=== PATIENT | female | born 1955 | race American Indian/Alaskan Native ===

== ENCOUNTER → 2016-07-21 | Outpatient (CLI) | payer MEDICARE, MEDICAID ==
[~2016-07-21] VITALS: Ht 154.9 cm; Wt 59.0 kg
[~2016-07-21] MED LIST: ALDACTONE 25MG25 M1 PO; ALDACTONE50 MG PO; ASPIRIN 32325 MG/TAB PO; ASPIRIN E.C. 8181 MG PO; ATENOLOL100 MG PO; CARDIZEM 30MG T30 MG PO; CEFTIN500 MG PO; CEPHALEXIN500 M1 PO; CLARITIN10 MG PO; FLEXERIL 1010 MG/TAB PO; FLONASEALLERGY NS; FORADIL AERO0.012 MG IH; GAS-X EXTRA ST125 MG PO; LIPITOR 40MG TA40 MG PO; LOPRESSOR 225 MG/TAB PO; LORTAB 5/500 501 TAB PO; LOTRISONE CREAM15 GM TP; LYRICA 25MG CAP25 MG PO; MULTIPLE VITAMI1 CAP PO; NAPROSYN500 MG PO; NATURAL POTASS595 MG PO; NITROSTAT0.4 MG/TAB SL; NORCO 325 MG-51 TAB PO; OXYGEN; PERCOCET 325 MG1 TA2 PO; PLAVIX 75MG TAB75 MG PO; PROAIR HFA0.09 MG/AC IH; RT SPIRIVA18 MCG IH; STOOL SOFTENER100 M2 PO; TESSALON PERLE200 MG PO; VALIUM5 MG PO; ZANTAC 150MG T150 MG PO; ZITHROMAX Z PA250 MG PO; macrobid PO
[2016-07-21 11:42] VITALS: BP 129/81; PULSE 82; TEMP 97
[2016-07-21 12:01] LABS: HEMATOCRIT 41.5 % (37.0-47.0); HEMOGLOBIN 13.5 g/dl (12.5-16.0); MEAN CELL VOLUME 92 fl (80.0-100.0); MEAN CORPUSCULAR HEMOGLOBIN 30 pg (27.0-31.0); MEAN CORPUSCULAR HGB CONC 33 g/dl (33.0-37.0); MEAN PLATELET VOLUME 10.8 fl (7.4-10.4); PLATELET COUNT 203 K/mm3 (130-400); WHITE BLOOD COUNT 7.9 K/mm3 (4.8-10.8)
[2016-07-21 12:05] LABS: INR 1.2 (0.8-3.0); PROTHROMBIN TIME 12.8 SECONDS (9.7-12.8)
[2016-07-21 12:24] LABS: CALCIUM 9.6 mg/dL (8.4-10.2); CREATININE, serum 1.17 mg/dL (0.52-1.25); POTASSIUM 4.5 mmol/L (3.4-5.0)
[2016-07-21 13:10] VITALS: BP 132/83; PULSE 90
[2016-07-21 14:00] VITALS: BP 127/83; PULSE 92
[2016-07-21 14:15] VITALS: BP 117/68; PULSE 86
[2016-07-21 15:00] VITALS: BP 117/81; PULSE 84; TEMP 97
== END ==
LOC: COL.RAD 10:44
PROVIDERS: Internal Medicine Interventional Cardiology
DX: R42 Dizziness and giddiness (principal); Z95.818 Presence of other cardiac implants and grafts; I47.2 Ventricular tachycardia; I25.10 Atherosclerotic heart disease of native coronary artery without angina pectoris; I25.2 Old myocardial infarction; Z79.899 Other long term (current) drug therapy; Z79.82 Long term (current) use of aspirin; E78.5 Hyperlipidemia, unspecified; I10 Essential (primary) hypertension; K21.9 Gastro-esophageal reflux disease without esophagitis; Z87.891 Personal history of nicotine dependence
CPT/HCPCS: C1764; J2250; J3010

== ENCOUNTER → 2016-08-16 | Outpatient (CLI) | payer MEDICARE, MEDICAID ==
[2016-08-16 11:20] LABS: HEMATOCRIT 43.8 % (37.0-47.0); HEMOGLOBIN 14.5 g/dl (12.5-16.0); MEAN CELL VOLUME 90 fl (80.0-100.0); MEAN CORPUSCULAR HEMOGLOBIN 30 pg (27.0-31.0); MEAN CORPUSCULAR HGB CONC 33 g/dl (33.0-37.0); MEAN PLATELET VOLUME 10.5 fl (7.4-10.4); PLATELET COUNT 212 K/mm3 (130-400); RED BLOOD COUNT 4.88 M/mm3 (4.10-5.30); REDCELL DISTRIBUTION WIDTH-CV 12.8 % (11.5-14.5); WHITE BLOOD COUNT 7.7 K/mm3 (4.8-10.8)
[2016-08-16 11:30] LABS: ANION GAP 13 mmol/L (7-16); BLOOD UREA NITROGEN 15 mg/dL (7-17); CARBON DIOXIDE 26 mmol/L (22-30); CHLORIDE 102 mmol/L (98-107); CREATININE, serum 0.96 mg/dL (0.52-1.25); GLUCOSE 107 mg/dL (74-106); POTASSIUM 3.7 mmol/L (3.4-5.0); SODIUM 141 mmol/L (137-145)
[2016-08-16 11:41] LABS: ALLEN TEST YES; ALLENS TEST RESULT PASS; ARTERIAL BLD GAS O2 SATURATION 95.2 % (92-100); ARTERIAL BLD GAS TCO2 CT 23.1; ARTERIAL BLOOD GAS BASE EXCESS -1.1 (-2-2); ARTERIAL BLOOD GAS HCO3 22.1 meq/L (22-26); ARTERIAL BLOOD GAS PO2 75.2 mmHg (80-100); ARTERIAL BLOOD GAS pH 7.45 (7.35-7.45); ATS? NO
[2016-08-16 11:43] LABS: B-TYPE NATRIURETIC PEPTIDE 38 pg/mL (0-125)
[2016-08-16 11:44] LABS: TROPONIN-I < 0.012 ng/mL (0.000-0.034)
== END ==
LOC: COL.RAD 10:34
PROVIDERS: Internal Medicine Interventional Cardiology
DX: J43.9 Emphysema, unspecified (principal)

== ENCOUNTER 2017-05-18 09:04 | Day surgery (SDC) | payer MEDICARE, MEDICAID ==
[~2017-05-18] VITALS: Ht 157.5 cm; Wt 54.5 kg
[2017-05-18] VITALS (13 sets, daily range): BP systolic 100–125; BP diastolic 58–88; PULSE 61–90; TEMP 97.4
[2017-05-18 09:43] LABS: HEMATOCRIT 45.5 % (37.0-47.0); HEMOGLOBIN 15.1 g/dl (12.5-16.0); MEAN CELL VOLUME 91 fl (80.0-100.0); MEAN CORPUSCULAR HEMOGLOBIN 30 pg (27.0-31.0); MEAN CORPUSCULAR HGB CONC 33 g/dl (33.0-37.0); MEAN PLATELET VOLUME 10.5 fl (7.4-10.4); PLATELET COUNT 248 K/mm3 (130-400); REDCELL DISTRIBUTION WIDTH-CV 13.6 % (11.5-14.5)
[2017-05-18] MEDS ORDERED: LIPITOR 40MG TA40 MG PO (09:45)
[2017-05-18] MEDS ORDERED: DULERA1 AR1 IH (09:46)
[2017-05-18] MEDS ORDERED: TRIAMCINOLONE A15 GM TP (09:47)
[2017-05-18 09:48] LABS: INR 1.1 (0.8-3.0); PROTHROMBIN TIME 13.1 SECONDS (9.7-12.8)
[2017-05-18] MEDS ORDERED: PROAIR HFA0.09 MG/AC IH (09:52)
[2017-05-18] MEDS ORDERED: NITROSTAT0.4 MG/TAB SL (09:53)
[2017-05-18] MEDS ORDERED: MULTI VITAMINS1 TAB PO (09:54)
[2017-05-18 09:56] LABS: CALCIUM 9.8 mg/dL (8.4-10.2); CREATININE, serum 1.27 mg/dL (0.52-1.25); MAGNESIUM 1.8 mg/dL (1.6-2.3); PHOSPHOROUS 4.1 mg/dL (2.5-4.5); POTASSIUM 4.4 mmol/L (3.4-5.0)
[2017-05-18 10:27] LABS: THYROID STIMULATING HORMONE 3.43 uIU/mL (0.465-4.680)
[2017-05-18] MEDS ORDERED: TYLENOL 325MG325 MG PO (14:28)
== END 2017-05-18 16:38 | disposition home or self-care (01) ==
LOC: COL.CAR 09:04
PROVIDERS: Internal Medicine Interventional Cardiology
DX: I25.119 Atherosclerotic heart disease of native coronary artery with unspecified angina pectoris (principal); R94.39 Abnormal result of other cardiovascular function study; I47.2 Ventricular tachycardia; K21.9 Gastro-esophageal reflux disease without esophagitis; I25.2 Old myocardial infarction; E78.5 Hyperlipidemia, unspecified; I73.9 Peripheral vascular disease, unspecified; Z79.01 Long term (current) use of anticoagulants
CPT/HCPCS: J2250; J3010; Q9967

== ENCOUNTER → 2017-08-03 | Outpatient (CLI) | payer MEDICARE, MEDICAID ==
[~2017-08-03] MED LIST changes: +DULERA1 AR1 IH; +MULTI VITAMINS1 TAB PO; +TRIAMCINOLONE A15 GM TP; +TYLENOL 325MG325 MG PO
== END ==
LOC: COL.CARD 09:51
DX: R55 Syncope and collapse (principal)

== ENCOUNTER → 2017-08-06 | Outpatient (CLI) | payer MEDICARE, MEDICAID | LOC: COL.RAD 10:09 | DX: I65.23 Occlusion and stenosis of bilateral carotid arteries (principal); I99.8 Other disorder of circulatory system; I77.1 Stricture of artery; J43.2 Centrilobular emphysema; M48.02 Spinal stenosis, cervical region; M50.31 Other cervical disc degeneration, high cervical region; M25.78 Osteophyte, vertebrae | CPT/HCPCS: Q9967 ==

== ENCOUNTER 2018-02-26 13:30 | Outpatient (RCR) | payer MEDICARE, MEDICAID | END 2018-02-28 15:13 | disposition home or self-care (01) | LOC: WSPT 13:30 | DX: M47.12 Other spondylosis with myelopathy, cervical region (principal); G95.89 Other specified diseases of spinal cord; M53.2X2 Spinal instabilities, cervical region; Z79.82 Long term (current) use of aspirin; Z79.899 Other long term (current) drug therapy; Z99.81 Dependence on supplemental oxygen | CPT/HCPCS: G8984-GP; G8985-GP ==

== ENCOUNTER 2018-07-04 15:45 | Outpatient (RCR) | payer MEDICARE, MEDICAID | END 2018-07-05 09:39 | disposition home or self-care (01) | LOC: WSC 15:45 | DX: Z47.89 Encounter for other orthopedic aftercare (principal); R53.1 Weakness; R26.89 Other abnormalities of gait and mobility; Z98.1 Arthrodesis status; Z79.82 Long term (current) use of aspirin; Z79.899 Other long term (current) drug therapy; Z79.891 Long term (current) use of opiate analgesic; Z99.81 Dependence on supplemental oxygen | CPT/HCPCS: G8978-GP; G8979-GP ==

== ENCOUNTER 2019-02-22 18:37 | Emergency (ER) | payer MEDICARE, MEDICAID ==
[~2019-02-22] VITALS: Ht 157.5 cm; Wt 65.9 kg
[2019-02-22 18:38] VITALS: TEMP 98.7
[2019-02-22 20:22] VITALS: BP 119/71; PULSE 100
== END 2019-02-22 20:22 | disposition home or self-care (01) ==
LOC: COL.ER 18:37
DX: S09.90XA Unspecified injury of head, initial encounter (principal); S16.1XXA Strain of muscle, fascia and tendon at neck level, initial encounter; I48.91 Unspecified atrial fibrillation; I25.10 Atherosclerotic heart disease of native coronary artery without angina pectoris; J44.9 Chronic obstructive pulmonary disease, unspecified; R40.2412 Glasgow coma scale score 13-15, at arrival to emergency department; Z88.6 Allergy status to analgesic agent; Z87.891 Personal history of nicotine dependence; Z79.51 Long term (current) use of inhaled steroids; Z79.82 Long term (current) use of aspirin; W01.0XXA Fall on same level from slipping, tripping and stumbling without subsequent striking against object, initial encounter; Y92.009 Unspecified place in unspecified non-institutional (private) residence as the place of occurrence of the external cause; Y93.E1 Activity, personal bathing and showering

== ENCOUNTER → 2019-02-26 | Outpatient (CLI) | payer MEDICARE, MEDICAID ==
[2019-02-26 17:21] LABS: BASO % 0.3 % (0.0-2.0); EOS # 0.3 (0.0-0.7); EOS % 3.3 % (0-4.0); GRAN # 6.1 (1.4-6.5); GRAN % 67.8 % (42.2-75.2); HEMATOCRIT 38.4 % (37.0-47.0); HEMOGLOBIN 11.6 g/dl (12.5-16.0); LYMPH # 1.9 (1.2-3.4); LYMPH % 20.6 % (20.0-51.0); MEAN CELL VOLUME 87 fl (80.0-100.0); MEAN CORPUSCULAR HEMOGLOBIN 26 pg (27.0-31.0); MEAN CORPUSCULAR HGB CONC 30 g/dl (33.0-37.0); MEAN PLATELET VOLUME 10.1 fl (7.4-10.4); MONO # 0.6 (0.1-0.6); MONO % 6.9 % (1.7-9.3); PLATELET COUNT 205 K/mm3 (130-400); RED BLOOD COUNT 4.42 M/mm3 (4.10-5.30); REDCELL DISTRIBUTION WIDTH-CV 22.2 % (11.5-14.5)
[2019-02-26 17:30] LABS: ANION GAP 10 mmol/L (7-16); BLOOD UREA NITROGEN 22 mg/dL (7-17); CALCIUM 9.2 mg/dL (8.4-10.2); CARBON DIOXIDE 23 mmol/L (22-30); CHLORIDE 112 mmol/L (98-107); GLUCOSE 124 mg/dL (74-106); POTASSIUM 4.4 mmol/L (3.4-5.0); SODIUM 145 mmol/L (137-145)
[2019-02-26 17:50] LABS: TROPONIN-I < 0.012 ng/mL (0.000-0.035)
== END ==
LOC: ZCOL.LAB 16:58
PROVIDERS: Internal Medicine Interventional Cardiology
DX: I50.21 Acute systolic (congestive) heart failure (principal); I25.10 Atherosclerotic heart disease of native coronary artery without angina pectoris; R06.02 Shortness of breath

== ENCOUNTER → 2019-02-28 | Outpatient (CLI) | payer MEDICARE, MEDICAID ==
[~2019-02-28] MED LIST changes: +CALCIUM CARBON650 M2 PO; +GAS AID MAXIMU125 MG PO; +VITAMIN D31000 I1 PO
== END ==
LOC: COL.RAD 13:50
DX: J43.9 Emphysema, unspecified (principal); I70.8 Atherosclerosis of other arteries
CPT/HCPCS: Q9967

== ENCOUNTER 2019-03-18 13:22 | Observation (INO) | payer MEDICARE, MEDICAID ==
[~2019-03-18] VITALS: Ht 157.5 cm; Wt 62.2 kg
[~2019-03-18 13:22] MED LIST changes: -CALCIUM CARBON650 M2 PO; -GAS AID MAXIMU125 MG PO; -VITAMIN D31000 I1 PO
[2019-03-18 14:40] LABS: INR 1.1 (0.8-3.0)
[2019-03-18 14:44] LABS: ALANINE AMINOTRANSFERASE 29 U/L (9-52); ALBUMIN 4.4 gm/dL (3.5-5.0); ALKALINE PHOSPHATASE 189 U/L (50-136); ANION GAP 15 mmol/L (7-16); AST,SGOT 31 U/L (15-37); BASO # 0.1 (0.0-0.2); BASO % 0.4 % (0.0-2.0); BILIRUBIN,TOTAL 1.4 mg/dL (0.0-1.0); BLOOD UREA NITROGEN 21 mg/dL (7-17); CALCIUM 9.4 mg/dL (8.4-10.2); CARBON DIOXIDE 22 mmol/L (22-30); CHLORIDE 100 mmol/L (98-107); CREATININE, serum 0.98 (0.52-1.25); EOS # 0.1 (0.0-0.7); EOS % 0.6 % (0-4.0); GLUCOSE 138 mg/dL (74-106); GRAN # 9.6 (1.4-6.5); GRAN % 76.8 % (42.2-75.2); HEMATOCRIT 44.4 % (37.0-47.0); HEMOGLOBIN 14.6 g/dl (12.5-16.0); LYMPH # 1.7 (1.2-3.4); LYMPH % 13.8 % (20.0-51.0); MEAN CELL VOLUME 82 fl (80.0-100.0); MEAN CORPUSCULAR HEMOGLOBIN 27 pg (27.0-31.0); MEAN CORPUSCULAR HGB CONC 33 g/dl (33.0-37.0); MEAN PLATELET VOLUME 10.3 fl (7.4-10.4); MONO % 7.7 % (1.7-9.3); PLATELET COUNT 274 K/mm3 (130-400); POTASSIUM 4.2 mmol/L (3.4-5.0); RED BLOOD COUNT 5.43 M/mm3 (4.10-5.30); REDCELL DISTRIBUTION WIDTH-CV 19.1 % (11.5-14.5); SODIUM 137 mmol/L (137-145); TOTAL PROTEIN 8.3 gm/dL (6.4-8.2)
[2019-03-18] MEDS ORDERED: VITAMIN D31000 I1 PO (14:46)
[2019-03-18] MEDS ORDERED: CALCIUM CARBON650 M2 PO (14:47)
[2019-03-18] MEDS ORDERED: GAS AID MAXIMU125 MG PO (14:47)
[2019-03-18 14:56] LABS: TROPONIN-I < 0.012 ng/mL (0.000-0.035)
[2019-03-18 15:52] VITALS: BP 154/90; PULSE 112
[2019-03-18 17:16] LABS: COLLECTION METHOD CLEAN CATCH
[2019-03-18 17:38] LABS: MUCOUS Present /lpf; PH 5 (5-8); SQUAMOUS EPITHELIAL 0-2 /hpf; URINE APPEARANCE Clear; URINE BACTERIA None Seen /hpf; URINE BILIRUBIN Negative (NEGATIVE); URINE BLOOD Negative (NEGATIVE); URINE COLOR Yellow; URINE GLUCOSE Negative (NEGATIVE); URINE KETONE Negative (NEGATIVE); URINE LEUKOCYTE ESTERASE Trace (NEGATIVE); URINE NITRATE Negative (NEGATIVE); URINE PROTEIN(semi-quant) Negative (NEGATIVE); URINE UROBILINOGEN Negative (NEGATIVE)
[2019-03-18 19:30] VITALS: BP 118/86; PULSE 125; TEMP 97.4
[2019-03-19] VITALS (9 sets, daily range): BP systolic 99–133; BP diastolic 57–82; PULSE 94–130; TEMP 97.5–98.9
--- NOTE | 2019-03-19 03:16 | NUR ---
PEPCID GIVEN AT THIS TIME FOR C/O ACID REFLUX. INA WAS OK TO GIVE THIS AT THIS TIME.
--- NOTE | 2019-03-19 07:57 | NUR ---
Pt had a better night after the pepcid was given for her acid reflex. States she slept some. Granddaughter spent the night with pt. No c/o this AM. Report given to oncoming RN. Call light within reach.
--- NOTE | 2019-03-19 08:00 | NUR ---
Patient resting in bed. Granddaughter at bedside. VSS. HR tachicardic DR is aware.IV CD&I. Patient denies pain and SOB. O2 @ 2L via NC. Fall risk precautions are in place. Pt expresses no further needs. Call light is in reach.
[2019-03-19 09:21] LABS: HEMATOCRIT 39.9 % (37.0-47.0); MEAN CELL VOLUME 85 fl (80.0-100.0); MEAN CORPUSCULAR HEMOGLOBIN 27 pg (27.0-31.0); MEAN CORPUSCULAR HGB CONC 31 g/dl (33.0-37.0); MEAN PLATELET VOLUME 10.1 fl (7.4-10.4); PLATELET COUNT 210 K/mm3 (130-400); REDCELL DISTRIBUTION WIDTH-CV 19.3 % (11.5-14.5)
[2019-03-19 09:25] LABS: HEMOGLOBIN 12.5 g/dl (12.5-16.0)
[2019-03-19 09:32] LABS: CALCIUM 8.4 mg/dL (8.4-10.2); CREATININE, serum 0.85 (0.52-1.25); POTASSIUM 4.2 mmol/L (3.4-5.0)
[2019-03-19 10:31] LABS: BAND 11 % (0-10); LYMPHOCYTE 3 % (20.0-51.0); NEUTROPHILS 86 % (42.0-75.2)
[2019-03-19 10:32] LABS: PLATELET ESTIMATE NORMAL (NORMAL)
--- NOTE | 2019-03-19 11:17 | NUR ---
First visit from the sand technician. No needs right now.
--- NOTE | 2019-03-19 13:27 | NUR ---
ARASH met with the patient to discuss discharge plan. The patient lives in [place] with her granddaughter (Lisbet Malave) and her granddaughter's . She reports independence with ADLs and has a walker, three canes, and nocturnal oxygen from [employer]. The patient's PCP is Dr. Rui He at the [facility] and she also receives her medications from there or will utilize the [facility]. She reports no difficulties obtaining her meds. The patient's advanced directives are in EMR. Her DPOA-HC is her daughter, Kristy Reddy (ph#[phone]). ARASH then addressed PT/OT's recommendation of home health vs outpatient therapy. The patient reports that she would be interested in home health. ARASH presented the patient with Medicare.gov's list of home health agencies that serve [place]. The patient chose [facility]. ARASH contacted and faxed a referral to Anirudh at [facility]. Anirudh reports that they are able to accept the patient for services. ARASH to inform the patient and will continue to follow.
--- NOTE | 2019-03-19 18:23 | NUR ---
Patient sitting up in bed eating dinner with daughter at the bedside. A&O, VSS. HR tachycardic throughout the shift. IV CDI, fluids infusing. Denies pain and discomfort. HR has decreased with new medication administration. Patient tolerated PT without difficulty. No further needs expressed from patient. Call light within reach
--- NOTE | 2019-03-19 21:30 | NUR ---
Patient assessed at this time. Alert and oriented x 4, and able to make needs known. Denies having pain and discomfort at this time. Peripheral IV to right forearm. Denies SOB and dyspnea. LS CTA. Respirations even and unlabored. HR-tachycardia. Denies chest pain and discomfort. BSAx4. No edema. Voices no questions, needs, or concerns at this time. Resting in bed with call light within reach. Granddaughter at bedside.
[2019-03-20 00:32] VITALS: BP 117/67; PULSE 86; TEMP 97.6
[2019-03-20 04:03] VITALS: BP 134/70; PULSE 82; TEMP 98.2
--- NOTE | 2019-03-20 06:04 | NUR ---
Patient has denied having pain and discomfort this shift. Has been resting in bed. IV fluids continue per orders. Granddaughter remains at bedside. Call light is within reach.
[2019-03-20 07:22] VITALS: BP 115/72; PULSE 77; TEMP 98
--- NOTE | 2019-03-20 09:10 | NUR ---
Patient is awake in bed watching TV, granddaughter is at bedside. Patient is alert and oriented. Respirations are even and nonlabored. States she has slight generalized pain which is normal for her. Does not wish for any intervention. Fresh water provided and patient took medications without issue. Call light and personal items are within reach.
[2019-03-20 12:06] VITALS: BP 114/75; PULSE 82; TEMP 97.9
[2019-03-20 17:14] VITALS: BP 143/69; PULSE 109; TEMP 98
--- NOTE | 2019-03-20 19:04 | NUR ---
Patient discharge instructions reviewed with patient and she verbalized understanding. Granddaughter will be making follow up appointments for her. She was accompained to private vehicle with Daughter and granddaughter. Personal belongings taken with patient.
== END 2019-03-20 18:05 | disposition home or self-care (01) ==
LOC: COL.ER 13:22 → MEDICAL 17:13
PROVIDERS: Emergency Medicine; ADMIT Student in an Organized Health Care Education/Training Program
DX: R55 Syncope and collapse (principal); I10 Essential (primary) hypertension; I73.9 Peripheral vascular disease, unspecified; J44.9 Chronic obstructive pulmonary disease, unspecified; E86.0 Dehydration; G89.29 Other chronic pain; M54.5 Low back pain; I25.10 Atherosclerotic heart disease of native coronary artery without angina pectoris; Z90.49 Acquired absence of other specified parts of digestive tract; Z79.02 Long term (current) use of antithrombotics/antiplatelets; Z79.82 Long term (current) use of aspirin; Z79.51 Long term (current) use of inhaled steroids; Z87.891 Personal history of nicotine dependence; Z99.81 Dependence on supplemental oxygen; Z91.048 Other nonmedicinal substance allergy status; Z91.018 Allergy to other foods; Z88.6 Allergy status to analgesic agent
CPT/HCPCS: 99232-AI; G0378; J0696; J1650; J1815; J7030; J7512; Q9967

== ENCOUNTER → 2019-03-24 | Outpatient (CLI) | payer MEDICARE, MEDICAID ==
[~2019-03-24] MED LIST changes: +CALCIUM CARBON650 M2 PO; +GAS AID MAXIMU125 MG PO; +VITAMIN D31000 I1 PO
[2019-03-24 16:08] LABS: HEMATOCRIT 42.2 % (37.0-47.0); HEMOGLOBIN 13.2 g/dl (12.5-16.0); MEAN CELL VOLUME 87 fl (80.0-100.0); MEAN CORPUSCULAR HEMOGLOBIN 27 pg (27.0-31.0); MEAN CORPUSCULAR HGB CONC 31 g/dl (33.0-37.0); MEAN PLATELET VOLUME 9.8 fl (7.4-10.4); PLATELET COUNT 195 K/mm3 (130-400); RED BLOOD COUNT 4.87 M/mm3 (4.10-5.30)
[2019-03-24 16:16] LABS: CALCIUM 8.8 mg/dL (8.4-10.2); CREATININE, serum 1.09 (0.52-1.25); POTASSIUM 4.3 mmol/L (3.4-5.0)
== END ==
LOC: COL.LAB 15:09
PROVIDERS: Internal Medicine Interventional Cardiology
DX: I73.9 Peripheral vascular disease, unspecified (principal)

== ENCOUNTER → 2019-05-02 | Outpatient (CLI) | payer MEDICARE, MEDICAID ==
[2019-05-03 01:11] LABS: HEPATITIS C VIRUS ANTIBODY Reactive (Negative)
== END ==
LOC: COL.LAB 09:07
PROVIDERS: Internal Medicine Interventional Cardiology
DX: Z11.59 Encounter for screening for other viral diseases (principal)

== ENCOUNTER → 2019-05-15 | Outpatient (CLI) | payer MEDICARE, MEDICAID | LOC: COL.RAD 10:55 | DX: J43.9 Emphysema, unspecified (principal); K74.0 Hepatic fibrosis ==

== ENCOUNTER 2019-09-17 12:49 | Emergency (ER) | payer MEDICARE, MEDICAID ==
[~2019-09-17] VITALS: Ht 157.5 cm; Wt 61.4 kg
[2019-09-17 13:22] LABS: BASO # 0.1 (0.0-0.2); BASO % 0.3 % (0.0-2.0); EOS % 0.1 % (0-4.0); GRAN # 16.8 (1.4-6.5); GRAN % 88.6 % (42.2-75.2); HEMATOCRIT 44.6 % (37.0-47.0); HEMOGLOBIN 14.8 g/dl (12.5-16.0); LYMPH # 0.9 (1.2-3.4); LYMPH % 4.9 % (20.0-51.0); MEAN CELL VOLUME 86 fl (80.0-100.0); MEAN CORPUSCULAR HEMOGLOBIN 29 pg (27.0-31.0); MEAN CORPUSCULAR HGB CONC 33 g/dl (33.0-37.0); MEAN PLATELET VOLUME 10.6 fl (7.4-10.4); MONO % 5.1 % (1.7-9.3); PLATELET COUNT 188 K/mm3 (130-400); RED BLOOD COUNT 5.19 M/mm3 (4.10-5.30); REDCELL DISTRIBUTION WIDTH-CV 14.4 % (11.5-14.5)
[2019-09-17 13:30] LABS: INR 1.1 (0.8-3.0); PROTHROMBIN TIME 12.6 SECONDS (9.7-12.8)
[2019-09-17 13:36] LABS: ALBUMIN 4.4 gm/dL (3.5-5.0); C-REACTIVE PROTEIN 0.6 mg/dL (0.0-0.9); CALCIUM 10.6 mg/dL (8.4-10.2); CREATININE, serum 1.17 (0.52-1.25); POTASSIUM 3.7 mmol/L (3.4-5.0); TOTAL PROTEIN 8.5 gm/dL (6.4-8.2)
[2019-09-17 13:50] LABS: PROLACTIN 12.9 ng/mL (3.0-18.6); TROPONIN-I 0.373 ng/mL (0.000-0.035)
[2019-09-17 15:41] VITALS: BP 156/98; PULSE 122; TEMP 98.3
== END 2019-09-17 15:45 | disposition short-term general hospital (02) ==
LOC: COL.ER 12:49
PROVIDERS: Emergency Medicine
DX: S06.6X9A Traumatic subarachnoid hemorrhage with loss of consciousness of unspecified duration, initial encounter (principal); S32.010A Wedge compression fracture of first lumbar vertebra, initial encounter for closed fracture; M62.82 Rhabdomyolysis; N28.0 Ischemia and infarction of kidney; R79.89 Other specified abnormal findings of blood chemistry; J44.9 Chronic obstructive pulmonary disease, unspecified; I48.91 Unspecified atrial fibrillation; I25.10 Atherosclerotic heart disease of native coronary artery without angina pectoris; R40.2412 Glasgow coma scale score 13-15, at arrival to emergency department; Z87.891 Personal history of nicotine dependence; Z79.82 Long term (current) use of aspirin; Z79.02 Long term (current) use of antithrombotics/antiplatelets; Z79.51 Long term (current) use of inhaled steroids; W08.XXXA Fall from other furniture, initial encounter; Y92.009 Unspecified place in unspecified non-institutional (private) residence as the place of occurrence of the external cause
CPT/HCPCS: J1170; J2405; J7030; Q9967

== ENCOUNTER → 2019-10-01 | Outpatient (CLI) | payer MEDICARE, MEDICAID ==
[2019-10-01 14:44] LABS: BASO % 0.3 % (0.0-2.0); EOS # 0.3 (0.0-0.7); GRAN # 9.4 (1.4-6.5); GRAN % 74.4 % (42.2-75.2); HEMATOCRIT 43.7 % (37.0-47.0); HEMOGLOBIN 13.9 g/dl (12.5-16.0); LYMPH # 1.8 (1.2-3.4); LYMPH % 14.2 % (20.0-51.0); MEAN CELL VOLUME 90 fl (80.0-100.0); MEAN CORPUSCULAR HEMOGLOBIN 29 pg (27.0-31.0); MEAN CORPUSCULAR HGB CONC 32 g/dl (33.0-37.0); MEAN PLATELET VOLUME 10.8 fl (7.4-10.4); MONO % 8.3 % (1.7-9.3); PLATELET COUNT 291 K/mm3 (130-400); RED BLOOD COUNT 4.86 M/mm3 (4.10-5.30); REDCELL DISTRIBUTION WIDTH-CV 16.1 % (11.5-14.5)
[2019-10-01 15:11] LABS: ALBUMIN 4.4 gm/dL (3.5-5.0); BILIRUBIN,TOTAL 1.1 mg/dL (0.0-1.0); CALCIUM 9.5 mg/dL (8.4-10.2); CREATININE, serum 1.13 (0.52-1.25); POTASSIUM 4.4 mmol/L (3.4-5.0); TOTAL PROTEIN 8.6 gm/dL (6.4-8.2)
== END ==
LOC: ZLAB.STJ 12:49
PROVIDERS: Family Medicine
DX: I10 Essential (primary) hypertension (principal); S06.0X0D Concussion without loss of consciousness, subsequent encounter

== ENCOUNTER → 2020-07-16 | Outpatient (CLI) | payer MEDICARE, MEDICAID ==
[~2020-07-16] MED LIST changes: +CLARITIN 1010 MG/TAB PO; +CLEOCIN HCL300 MG PO; +DULERA1 ARO IH; +IMITREX 25MG TA25 MG PO; +INCRUSE EL62.5 MCG/A IH; +LASIX 20MG TABL20 MG PO; +LEVAQUIN 750MG750 M1 PO; -LOPRESSOR 225 MG/TAB PO; +MACROBID 1100 MG/CAP PO; +NORVASC 5MG5 MG/TAB PO; +PREDNISONE10 MG PO; +PREDNISONE20 MG PO; +PRILOSEC 20MG20 MG PO; +PROBIOTIC BLEN1 EACH PO; +PROTONIX 40MG T40 MG PO; +TOPROL XL 25MG25 MG PO; +TOPROL XL 50MG50 MG PO; +TOPROL XL100 MG PO; +VANCOCIN H125 MG/CAP PO; +ZOLOFT 25MG25 MG PO; +ZOLOFT 50MG50 MG PO
[2020-07-16 08:00] LABS: ARTERIAL BLD GAS O2 SATURATION 89.5 % (92-100); ARTERIAL BLD GAS TCO2 CT 23.1; ARTERIAL BLOOD GAS BASE EXCESS -1.5 (-2-2); ARTERIAL BLOOD GAS PCO2 33.2 mmHg (35-45); ARTERIAL BLOOD GAS PO2 55.1 mmHg (80-100); ARTERIAL BLOOD GAS pH 7.44 (7.35-7.45)
--- NOTE | 2020-07-16 09:47 | NUR ---
Upon patient arriving and having been already brought up to the patient waiting room. Patient informs check in that she wears 5L oxygen at home and has not been wearing it since she left the house this morning. Patient was given oxygen and then notified that she has not being wearing 5L and if Dr. Starks would still like and ABG done. Dr. Starks wanted the patient at least on 2l for the ABG. Patient was placed on 2L for ABG, results were called back to Dr. Starks who wanted patient to wear 4L at home. Patient did not feel well enough for PFT and wanted to reschedule.
== END ==
LOC: COL.PUL 07-08 07:30
PROVIDERS: Internal Medicine Pulmonary Disease
DX: J44.9 Chronic obstructive pulmonary disease, unspecified (principal)

== ENCOUNTER 2020-08-18 17:47 | Inpatient (IN) | payer MEDICARE, MEDICAID ==
[~2020-08-18] VITALS: Ht 152.4 cm; Wt 61.2 kg
[~2020-08-18 17:47] MED LIST changes: -CLARITIN 1010 MG/TAB PO; -DULERA1 ARO IH; -INCRUSE EL62.5 MCG/A IH; -LASIX 20MG TABL20 MG PO; -LEVAQUIN 750MG750 M1 PO; -MACROBID 1100 MG/CAP PO; -PREDNISONE20 MG PO; -PRILOSEC 20MG20 MG PO; -TOPROL XL 25MG25 MG PO; -TOPROL XL100 MG PO; -VANCOCIN H125 MG/CAP PO; -ZOLOFT 25MG25 MG PO
[2020-08-18 18:40] LABS: BASO # 0.1 (0.0-0.2); BASO % 0.3 % (0.0-2.0); EOS # 0.2 (0.0-0.7); GRAN # 13.6 (1.4-6.5); GRAN % 81.7 % (42.2-75.2); HEMATOCRIT 44.2 % (37.0-47.0); HEMOGLOBIN 13.5 g/dl (12.5-16.0); LYMPH # 1.8 (1.2-3.4); LYMPH % 10.5 % (20.0-51.0); MEAN CELL VOLUME 86 fl (80.0-100.0); MEAN CORPUSCULAR HEMOGLOBIN 26 pg (27.0-31.0); MEAN CORPUSCULAR HGB CONC 31 g/dl (33.0-37.0); MEAN PLATELET VOLUME 10.9 fl (7.4-10.4); MONO # 0.9 (0.1-0.6); MONO % 5.4 % (1.7-9.3); PLATELET COUNT 211 K/mm3 (130-400); RED BLOOD COUNT 5.13 M/mm3 (4.10-5.30); REDCELL DISTRIBUTION WIDTH-CV 16.1 % (11.5-14.5)
[2020-08-18 18:44] VITALS: BP 105/693; PULSE 76
[2020-08-18 18:57] LABS: ALANINE AMINOTRANSFERASE 28 U/L (4-34); ALBUMIN 4.7 gm/dL (3.5-5.0); ALKALINE PHOSPHATASE 121 U/L (50-136); ANION GAP 13 mmol/L (7-16); AST,SGOT 62 U/L (15-37); BILIRUBIN,TOTAL 2.1 mg/dL (0.0-1.0); BLOOD UREA NITROGEN 27 mg/dL (7-17); CALCIUM 9.3 mg/dL (8.4-10.2); CARBON DIOXIDE 20 mmol/L (22-30); CHLORIDE 106 mmol/L (98-107); CREATININE, serum 1.97 (0.52-1.25); GLUCOSE 113 mg/dL (74-106); POTASSIUM 5.7 mmol/L (3.4-5.0); SODIUM 139 mmol/L (137-145); TOTAL PROTEIN 9.2 gm/dL (6.4-8.2)
[2020-08-18 18:58] LABS: C-REACTIVE PROTEIN 0.5 mg/dL (0.0-0.9)
[2020-08-18 19:08] LABS: TROPONIN-I < 0.012 ng/mL (0.000-0.035)
[2020-08-18 19:09] LABS: INR 1.1 (0.8-3.0); PROTHROMBIN TIME 12.2 SECONDS (9.7-12.8)
[2020-08-18 19:50] LABS: COLLECTION METHOD CLEAN CATCH
[2020-08-18 20:01] LABS: MUCOUS Present /lpf; PH 5 (5-8); URINE APPEARANCE Cloudy; URINE BACTERIA Rare /hpf; URINE BILIRUBIN Negative (NEGATIVE); URINE BLOOD Negative (NEGATIVE); URINE COLOR Yellow; URINE GLUCOSE Negative (NEGATIVE); URINE KETONE Negative (NEGATIVE); URINE LEUKOCYTE ESTERASE 1+ (NEGATIVE); URINE NITRATE Negative (NEGATIVE); URINE PROTEIN(semi-quant) Negative (NEGATIVE); URINE RBC 0-2 /hpf; URINE UROBILINOGEN Negative (NEGATIVE)
[2020-08-18] MEDS ORDERED: INCRUSE EL62.5 MCG/A IH (20:55)
[2020-08-18] MEDS ORDERED: PROTONIX 40MG T40 MG PO (20:55)
[2020-08-18] MEDS ORDERED: ALDACTONE50 MG PO (22:12)
[2020-08-18] MEDS ORDERED: TOPROL XL100 MG PO (22:13)
[2020-08-18] MEDS ORDERED: TOPROL XL 25MG25 MG PO (22:17)
[2020-08-18] MEDS ORDERED: ZOLOFT 25MG25 MG PO (22:17)
[2020-08-18] MEDS ORDERED: CLARITIN 1010 MG/TAB PO (22:20)
[2020-08-18 22:23] LABS: CALCIUM 8.4 mg/dL (8.4-10.2); CREATININE, serum 1.63 (0.52-1.25); POTASSIUM 3.9 mmol/L (3.4-5.0)
[2020-08-18 23:25] LABS: MAGNESIUM 1.6 mg/dL (1.6-2.3); PHOSPHOROUS 4.4 mg/dL (2.5-4.5)
[2020-08-18 23:34] LABS: CREATININE, serum 1.75 (0.52-1.25)
[2020-08-19] VITALS (225 sets, daily range): BP systolic 121–1472; BP diastolic 66–100; PULSE 72–113; TEMP 97.5–98.3; O2SAT 90–100
[2020-08-19 05:55] LABS: BASO % 0.3 % (0.0-2.0); EOS # 0.2 (0.0-0.7); GRAN # 7.6 (1.4-6.5); GRAN % 77.4 % (42.2-75.2); LYMPH # 1.3 (1.2-3.4); LYMPH % 13.6 % (20.0-51.0); MEAN CELL VOLUME 86 fl (80.0-100.0); MEAN CORPUSCULAR HGB CONC 31 g/dl (33.0-37.0); MEAN PLATELET VOLUME 11.1 fl (7.4-10.4); MONO # 0.6 (0.1-0.6); MONO % 6.4 % (1.7-9.3); PLATELET COUNT 147 K/mm3 (130-400); RED BLOOD COUNT 4.15 M/mm3 (4.10-5.30)
[2020-08-19 06:01] LABS: HEMATOCRIT 35.6 % (37.0-47.0); HEMOGLOBIN 11.1 g/dl (12.5-16.0); MEAN CORPUSCULAR HEMOGLOBIN 27 pg (27.0-31.0)
[2020-08-19 06:10] LABS: ALBUMIN 3.5 gm/dL (3.5-5.0); BILIRUBIN,TOTAL 0.6 mg/dL (0.0-1.0); CALCIUM 8.1 mg/dL (8.4-10.2); CREATININE, serum 1.26 (0.52-1.25); POTASSIUM 4.1 mmol/L (3.4-5.0); TOTAL PROTEIN 6.9 gm/dL (6.4-8.2)
[2020-08-19 08:36] LABS: CALCIUM 8.2 mg/dL (8.4-10.2); CREATININE, serum 1.25 (0.52-1.25); POTASSIUM 3.9 mmol/L (3.4-5.0)
--- NOTE | 2020-08-19 09:53 | NUR ---
SW met with the patient to discuss discharge plan. The patient lives in [place] with her granddaughter, Lisbet, and Lisbet's . She reports independence with ADLs and has a walker, cane, and continuous home oxygen from [facility]. The patient's PCP is Dr. Jelena Escalante and she receives her medications from [facility]. She reports no difficulties obtaining her meds. The patient's DPOA-HC is in EMR and it designates her daughter, Kristy (ph#[phone]). Kristy lives in [place]. The patient plans to return home with her granddaughter upon discharge. SW discussed home health and their benefits. The patient declined home health at this time. SW contacted and reviewed the above information with the patient's daughter, Kristy. Kristy reports no concerns with the patient returning home upon discharge. No additional needs at this time. *Discharge plan: home with family*
--- NOTE | 2020-08-19 13:32 | NUR ---
Initial visit; Patient thanked Personal Banking Assistant for looking in on her and offering Happy Birthday and and to keep her in Personal Banking Assistant's prayers.
--- NOTE | 2020-08-19 17:58 | NUR ---
bed bath provided to pt, arora discontinued, purewicc in place, pt actively hallucinating and talking to herself. pt does not follow directions, repositioned multiple times, legs elevated, medications given, looking for placement, no other needs.
--- NOTE | 2020-08-19 18:01 | NUR ---
pt pleasant, sob at rest, reports little rest at night, pt on 4l o2 which is baseline, pt has no other needs, med rec went over and pt assessment performed. IV fluids infusing.
[2020-08-20 03:08] VITALS: BP 149/87; PULSE 93; TEMP 97.5
[2020-08-20 03:15] VITALS: BP 116/72; BP 149/87; PULSE 35; PULSE 93; TEMP 97.5; TEMP 98.3
--- NOTE | 2020-08-20 06:08 | NUR ---
PATIENT RESTED QUIETLY IN BED THROUGHOUT THE NIGHT. PATIENT REPORTED SHE SLEPT WELL AND FEELS GOOD THIS MORNING. NO NEW ISSUES NOTED OR REPORTED BY PATIENT.
[2020-08-20 06:30] LABS: BASO % 0.3 % (0.0-2.0); EOS # 0.4 (0.0-0.7); EOS % 3.7 % (0-4.0); GRAN # 8.5 (1.4-6.5); GRAN % 77.8 % (42.2-75.2); HEMOGLOBIN 10.8 g/dl (12.5-16.0); LYMPH # 1.4 (1.2-3.4); LYMPH % 12.3 % (20.0-51.0); MEAN CELL VOLUME 85 fl (80.0-100.0); MEAN CORPUSCULAR HEMOGLOBIN 27 pg (27.0-31.0); MEAN CORPUSCULAR HGB CONC 32 g/dl (33.0-37.0); MEAN PLATELET VOLUME 11.6 fl (7.4-10.4); MONO # 0.6 (0.1-0.6); MONO % 5.4 % (1.7-9.3); PLATELET COUNT 152 K/mm3 (130-400); RED BLOOD COUNT 4.01 M/mm3 (4.10-5.30); REDCELL DISTRIBUTION WIDTH-CV 15.9 % (11.5-14.5)
[2020-08-20 06:40] LABS: HEMATOCRIT 34.1 % (37.0-47.0)
[2020-08-20 06:45] LABS: CALCIUM 8.3 mg/dL (8.4-10.2); CREATININE, serum 1.07 (0.52-1.25); MAGNESIUM 1.3 mg/dL (1.6-2.3); POTASSIUM 4.2 mmol/L (3.4-5.0)
[2020-08-20 07:30] VITALS: BP 170/86; PULSE 94; TEMP 97.9
--- NOTE | 2020-08-20 08:45 | NUR ---
Pt doing well. She has had breakfast, no pain complaints or any other needs. Call light within reach, will continue to monitor
[2020-08-20] MEDS ORDERED: MACROBID 1100 MG/CAP PO (10:34)
--- NOTE | 2020-08-20 10:59 | NUR ---
Director Community Health Nursing attended clinical rounds with the team and patient to discharge home today. SW followed up with patient to again offer Home Health services. Patient declines at this time and feels she does not need it. Patient states she has had [facility] in the past. Discharge Plan: Home today.
[2020-08-20 11:37] VITALS: BP 178/83; PULSE 105; TEMP 97.9
--- NOTE | 2020-08-20 12:00 | NUR ---
Pt sitting up eating lunch. She is aware that she is discharged. Informed her that she does have magnesium infusing and that it will be done by 3pm. No needs verbalized, will continue to monitor
--- NOTE | 2020-08-20 15:25 | NUR ---
Reviewed discharge instruction with patient. She is waiting on her ride at this time. INT removed from right wrist.
--- NOTE | 2020-08-20 15:48 | NUR ---
Pt escorted out at this time
== END 2020-08-20 15:48 | disposition home or self-care (01) | DRG 872 ==
LOC: COL.ER 17:47 → ICU 22:35 → MEDICAL 08-19 14:47
PROVIDERS: Emergency Medicine; Nurse Practitioner Family; ADMIT Internal Medicine
DX: A41.9 Sepsis, unspecified organism (principal); N17.9 Acute kidney failure, unspecified; J96.11 Chronic respiratory failure with hypoxia; N39.0 Urinary tract infection, site not specified; R65.20 Severe sepsis without septic shock; E87.5 Hyperkalemia; E83.42 Hypomagnesemia; F32.9 Major depressive disorder, single episode, unspecified; G89.29 Other chronic pain; I48.91 Unspecified atrial fibrillation; E78.5 Hyperlipidemia, unspecified; J44.9 Chronic obstructive pulmonary disease, unspecified; F17.210 Nicotine dependence, cigarettes, uncomplicated; I65.21 Occlusion and stenosis of right carotid artery; R19.7 Diarrhea, unspecified; I73.9 Peripheral vascular disease, unspecified; M54.9 Dorsalgia, unspecified; Z79.82 Long term (current) use of aspirin
CPT/HCPCS: 99223-AI; 99232-AI; 99239; J0696; J3475; J7030; J7040

== ENCOUNTER 2020-12-07 16:52 | Emergency (ER) | payer MEDICARE, MEDICAID ==
[~2020-12-07] VITALS: Ht 154.9 cm; Wt 54.5 kg
[~2020-12-07 16:52] MED LIST changes: +CLARITIN 1010 MG/TAB PO; +INCRUSE EL62.5 MCG/A IH; +MACROBID 1100 MG/CAP PO; +TOPROL XL 25MG25 MG PO; +TOPROL XL100 MG PO; +ZOLOFT 25MG25 MG PO
[2020-12-07 16:54] VITALS: TEMP 98
[2020-12-07 17:11] LABS: BASO % 0.4 % (0.0-2.0); EOS # 0.2 (0.0-0.7); EOS % 2.1 % (0-4.0); GRAN # 8.2 (1.4-6.5); GRAN % 76.9 % (42.2-75.2); HEMATOCRIT 44.2 % (37.0-47.0); HEMOGLOBIN 13.7 g/dl (12.5-16.0); LYMPH # 1.4 (1.2-3.4); LYMPH % 13.3 % (20.0-51.0); MEAN CELL VOLUME 85 fl (80.0-100.0); MEAN CORPUSCULAR HEMOGLOBIN 26 pg (27.0-31.0); MEAN CORPUSCULAR HGB CONC 31 g/dl (33.0-37.0); MEAN PLATELET VOLUME 10.8 fl (7.4-10.4); MONO # 0.7 (0.1-0.6); MONO % 6.9 % (1.7-9.3); PLATELET COUNT 194 K/mm3 (130-400); RED BLOOD COUNT 5.19 M/mm3 (4.10-5.30); REDCELL DISTRIBUTION WIDTH-CV 18.3 % (11.5-14.5)
[2020-12-07 17:26] LABS: ALANINE AMINOTRANSFERASE 27 U/L (4-34); ALBUMIN 4.2 gm/dL (3.5-5.0); ALKALINE PHOSPHATASE 158 U/L (50-136); ANION GAP 10 mmol/L (7-16); AST,SGOT 36 U/L (15-37); BILIRUBIN,TOTAL 1.5 mg/dL (0.0-1.0); BLOOD UREA NITROGEN 18 mg/dL (7-17); CALCIUM 9.1 mg/dL (8.4-10.2); CARBON DIOXIDE 24 mmol/L (22-30); CHLORIDE 106 mmol/L (98-107); CREATININE, serum 1.19 (0.52-1.25); GLUCOSE 117 mg/dL (74-106); POTASSIUM 3.6 mmol/L (3.4-5.0); SODIUM 140 mmol/L (137-145); TOTAL PROTEIN 8.3 gm/dL (6.4-8.2)
[2020-12-07 17:47] LABS: TROPONIN-I < 0.012 ng/mL (0.000-0.035)
[2020-12-07] MEDS ORDERED: ALDACTONE 25MG25 M1 PO (17:58)
[2020-12-07] MEDS ORDERED: LEVAQUIN 750MG750 M1 PO (18:37)
[2020-12-07] MEDS ORDERED: PREDNISONE20 MG PO (18:37)
[2020-12-07 19:19] VITALS: BP 142/78; PULSE 97
== END 2020-12-07 19:23 | disposition home or self-care (01) ==
LOC: COL.ER 16:52
PROVIDERS: Student in an Organized Health Care Education/Training Program
DX: J44.1 Chronic obstructive pulmonary disease with (acute) exacerbation (principal); I10 Essential (primary) hypertension; E78.5 Hyperlipidemia, unspecified; I48.91 Unspecified atrial fibrillation; Z87.891 Personal history of nicotine dependence; Z79.02 Long term (current) use of antithrombotics/antiplatelets; Z20.822 Contact with and (suspected) exposure to COVID-19
CPT/HCPCS: J1956; J2930

== ENCOUNTER 2021-01-28 08:13 | Inpatient (IN) | payer MEDICARE, MEDICAID ==
[~2021-01-28] VITALS: Ht 154.9 cm; Wt 59.1 kg
[~2021-01-28 08:13] MED LIST changes: +LEVAQUIN 750MG750 M1 PO; +PREDNISONE20 MG PO
[2021-01-28 08:41] LABS: BASO # 0.1 K/mm3 (0.0-0.2); BASO % 0.4 % (0.0-2.0); EOS # 0.1 K/mm3 (0.0-0.7); EOS % 0.3 % (0-4.0); GRAN # 16.2 K/mm3 (1.4-6.5); GRAN % 85.8 % (42.2-75.2); HEMATOCRIT 50.7 % (37.0-47.0); HEMOGLOBIN 16.4 g/dl (12.5-16.0); LYMPH # 1.5 K/mm3 (1.2-3.4); LYMPH % 7.9 % (20.0-51.0); MEAN CELL VOLUME 84 fl (80.0-100.0); MEAN CORPUSCULAR HEMOGLOBIN 27 pg (27.0-31.0); MEAN CORPUSCULAR HGB CONC 32 g/dl (33.0-37.0); MEAN PLATELET VOLUME 11.5 fl (7.4-10.4); PLATELET COUNT 213 K/mm3 (130-400); RED BLOOD COUNT 6.03 M/mm3 (4.10-5.30); REDCELL DISTRIBUTION WIDTH-CV 18.6 % (11.5-14.5)
[2021-01-28 08:46] LABS: COLLECTION METHOD CLEAN CATCH
[2021-01-28 08:49] LABS: INR 1.1 (0.8-3.0); PROTHROMBIN TIME 12.7 SECONDS (9.7-12.8)
[2021-01-28 08:56] LABS: MUCOUS Present /lpf; PH 5 (5-8); URINE APPEARANCE Cloudy; URINE BACTERIA None Seen /hpf; URINE BILIRUBIN Positive (NEGATIVE); URINE BLOOD Negative (NEGATIVE); URINE COLOR Amber; URINE GLUCOSE Negative (NEGATIVE); URINE KETONE Negative (NEGATIVE); URINE LEUKOCYTE ESTERASE Negative (NEGATIVE); URINE NITRATE Negative (NEGATIVE); URINE PROTEIN(semi-quant) 2+ (NEGATIVE); URINE RBC 0-2 /hpf
[2021-01-28 09:11] LABS: ALANINE AMINOTRANSFERASE 22 U/L (0-55); ALBUMIN 4.1 gm/dL (3.4-4.8); ALKALINE PHOSPHATASE 164 U/L (0-750); ANION GAP 14 mmol/L (7-16); AST,SGOT 24 U/L (5-34); BILIRUBIN,TOTAL 1.7 mg/dL (0.2-1.2); BLOOD UREA NITROGEN 29 mg/dL (10-20); CALCIUM 10.4 mg/dL (8.4-10.2); CARBON DIOXIDE 22 mmol/L (23-31); CHLORIDE 99 mmol/L (98-107); CREATININE, serum 1.82 mg/dL (0.57-1.11); GLUCOSE 148 mg/dL (70-99); LIPASE 21 U/L (8-78); POTASSIUM 4.6 mmol/L (3.5-4.5); SODIUM 135 mmol/L (136-145); TOTAL PROTEIN 8.6 gm/dL (6.2-8.1)
[2021-01-28 09:36] LABS: TROPONIN-I < 0.010 ng/mL (0.00-0.033)
[2021-01-28 14:00] VITALS: BP 151/89; PULSE 90; TEMP 98.2
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
[2021-01-28] MEDS ORDERED: TOPROL XL100 MG PO (15:31)
[2021-01-28] MEDS ORDERED: DULERA1 ARO IH (15:39)
--- NOTE | 2021-01-28 16:00 | NUR ---
Pt arrived to the floor from ED. PT is alert and oriented. Med rec completed by calling pharmacy. PT stated that some of her medications she has not taken because she did not go to her follow up appointments to get refills. Pt reported that her primary Dr, Dr Escalante, will no longer see her due to this. Pt stated that she fell a couple days ago by tripping over her O2 tubing. Some bruising noted, no abrasions. SCDs on bilaterally. INT to right wrist and left AC. BLANCA Sharp notified of patient arrival and new orders have been wrote. Call light within reach, will continue to monitor
[2021-01-28] MEDS ORDERED: PRILOSEC 20MG20 MG PO (16:08)
[2021-01-28 17:00] VITALS: BP 123/78; PULSE 93
[2021-01-28 19:46] VITALS: BP 112/76; PULSE 91; TEMP 97.6
[2021-01-28 20:25] LABS: HEMATOCRIT 42.6 % (37.0-47.0)
[2021-01-28 20:52] LABS: HEMOGLOBIN 13.3 g/dl (12.5-16.0)
--- NOTE | 2021-01-28 22:45 | NUR ---
Patient alert and oriented. Patient reports intermittent mild abdominal pain. Patient tolerating clear liquid diet. No N/V noted. Assisted patient to the bathroom to void upon shift start. Small amount of rectal bleeding noted. Patient currently on oxygen 5L via NC. Patient reports some SOB with activities and requesting breathing treatment. Respiratory called for breathing treatment. Call light in reach. Bed alarms on. Will continue to monitor.
[2021-01-28 23:32] VITALS: BP 162/77; PULSE 86; TEMP 98.2
[2021-01-29 03:21] VITALS: BP 141/87; PULSE 92; TEMP 98.1
--- NOTE | 2021-01-29 05:39 | NUR ---
Patient has no BM/diarrhea throughout the night. Unable to collect GI panel. Patient has non-productive dry cough on and off. Per patient, coughing is not new onset, sh has been coughing years due to COPD. Patient reports moderate pain to her abdomen this morning. PRN tylenol given for pain. Call light in reach. Bed alarms on.
[2021-01-29 07:07] LABS: BASO % 0.4 % (0.0-2.0); EOS # 0.3 K/mm3 (0.0-0.7); EOS % 2.9 % (0-4.0); GRAN # 7.6 K/mm3 (1.4-6.5); GRAN % 76.6 % (42.2-75.2); HEMATOCRIT 45.1 % (37.0-47.0); LYMPH # 1.2 K/mm3 (1.2-3.4); LYMPH % 11.9 % (20.0-51.0); MEAN CELL VOLUME 87 fl (80.0-100.0); MEAN CORPUSCULAR HEMOGLOBIN 27 pg (27.0-31.0); MEAN CORPUSCULAR HGB CONC 31 g/dl (33.0-37.0); MEAN PLATELET VOLUME 12.6 fl (7.4-10.4); MONO # 0.8 K/mm3 (0.1-0.6); MONO % 7.6 % (1.7-9.3); PLATELET COUNT 155 K/mm3 (130-400); RED BLOOD COUNT 5.21 M/mm3 (4.10-5.30); REDCELL DISTRIBUTION WIDTH-CV 17.8 % (11.5-14.5)
[2021-01-29 07:20] LABS: ALBUMIN 3.3 gm/dL (3.4-4.8); BILIRUBIN,TOTAL 2.1 mg/dL (0.2-1.2); CALCIUM 9.4 mg/dL (8.4-10.2); CREATININE, serum 1.49 mg/dL (0.57-1.11); POTASSIUM 3.7 mmol/L (3.5-4.5); TOTAL PROTEIN 7.2 gm/dL (6.2-8.1)
[2021-01-29 07:22] VITALS: BP 126/83; PULSE 85; TEMP 97.5
--- NOTE | 2021-01-29 11:26 | NUR ---
Card Hand visited with patient. Nothing else needed at this time.
[2021-01-29 12:38] VITALS: BP 140/80; PULSE 91; TEMP 97.9
[2021-01-29 15:52] LABS: CLOSTRIDIUM DIFF A/B NEG; CLOSTRIDIUM DIFF A/B INTERP NonToxigenic C.diff
[2021-01-29 15:57] VITALS: BP 139/80; PULSE 113; TEMP 97.4
[2021-01-29 19:33] VITALS: BP 135/67; PULSE 109; TEMP 98.4
--- NOTE | 2021-01-29 21:00 | NUR ---
PT IN BED, WATCHING TV. TAKES SCHEDULED HS MED. HAS IVF INFUSING TO LEFT AC SITE WITHOUT REDNESS OR SWELLING. HAS SL TO RT FOREARM, FLUSHES WELL. NOTED BILATERAL ARM BRUISING. REPORTS WATERY STOOLS AND REMAINS ON CDIFF ISOLATION. IS ALERT AND ORIENTED X4, WEARING OXYGEN AT 4L/NC.
[2021-01-30 00:06] VITALS: BP 152/76; PULSE 83; TEMP 97.7
[2021-01-30 03:44] VITALS: BP 121/75; PULSE 98; TEMP 97.2
--- NOTE | 2021-01-30 06:00 | NUR ---
TAKES SCHEDULED AM MEDS AT THIS TIME. DENIES CONCERNS AT THIS TIME.
[2021-01-30 07:25] VITALS: BP 122/69; PULSE 99; TEMP 97.3
[2021-01-30 07:39] LABS: BASO % 0.3 % (0.0-2.0); EOS # 0.6 K/mm3 (0.0-0.7); EOS % 6.3 % (0-4.0); GRAN # 6.6 K/mm3 (1.4-6.5); HEMATOCRIT 40.4 % (37.0-47.0); HEMOGLOBIN 12.6 g/dl (12.5-16.0); LYMPH # 0.8 K/mm3 (1.2-3.4); LYMPH % 9.1 % (20.0-51.0); MEAN CELL VOLUME 87 fl (80.0-100.0); MEAN CORPUSCULAR HEMOGLOBIN 27 pg (27.0-31.0); MEAN CORPUSCULAR HGB CONC 31 g/dl (33.0-37.0); MEAN PLATELET VOLUME 12.6 fl (7.4-10.4); MONO # 0.7 K/mm3 (0.1-0.6); MONO % 7.5 % (1.7-9.3); PLATELET COUNT 142 K/mm3 (130-400); RED BLOOD COUNT 4.62 M/mm3 (4.10-5.30); REDCELL DISTRIBUTION WIDTH-CV 17.9 % (11.5-14.5)
[2021-01-30 08:03] LABS: CALCIUM 8.7 mg/dL (8.4-10.2); CREATININE, serum 1.15 mg/dL (0.57-1.11); POTASSIUM 3.1 mmol/L (3.5-4.5)
[2021-01-30 12:35] VITALS: BP 143/94; PULSE 102; TEMP 98.4
[2021-01-30 17:16] VITALS: BP 150/85; PULSE 108; TEMP 98.5
--- NOTE | 2021-01-30 18:30 | NUR ---
Patient has been doing well today. No complaints of nausea. Denies pain. She has been having less stools and smaller amounts. She is getting short of breath with activity. She keeps having a dry cough, halls given to help. She had some nausea after her first dose of potassium and wanted to wait until after she ate supper. She also wanted to wait to take her vanc. No other changes at this itme. Call light within reach.
[2021-01-30 19:17] VITALS: BP 156/83; PULSE 81; TEMP 97.7
[2021-01-31] VITALS (7 sets, daily range): BP systolic 109–181; BP diastolic 64–108; PULSE 71–101; TEMP 97.6–98.5
--- NOTE | 2021-01-31 03:15 | NUR ---
PT RESTING QUIETLY IN BED @ THIS TIME. OXYGEN ON @ 4L NC. RESPIRATIONS UNLABORED. HAS HAD 2 LOOSE STOOLS THIS EVENING WITH SOME INCONTINENCE. CONTACT ET FALL RISK PRECAUTIONS REMAIN IN PLACE. PT WAS OFFERED TO TAKE BED BATH LAST NIGHT ET DECLINED @ THE TIME, STATED THAT SHE WAS TOO TIRED. WILL OFFER AGAIN THIS MORNING. CALL LIGHT WITHIN REACH.
--- NOTE | 2021-01-31 04:35 | NUR ---
PT IS AWAKE, STATES THAT SHE HAS NOT HAD A GOOD NIGHT, HAS HAD ONE MORE LOOSE INCONTINENT STOOL. REQUESTS A PEPSI TO DRINK. PT IS ENCOURAGED TO DRINK AN ALTERNATIVE LIKE SPRITE. PT IS AGREEABLE, STATES THAT SHE JUST GETS TIRED OF DRINKING WATER. DENIES OTHER NEEDS, IS PLAYING ON HER PHONE, OXYGEN REMAINS ON @ 5L NC. CALL LIGHT WITHIN REACH.
[2021-01-31 07:38] LABS: HEMATOCRIT 42.9 % (37.0-47.0); HEMOGLOBIN 13.3 g/dl (12.5-16.0); MEAN CELL VOLUME 88 fl (80.0-100.0); MEAN CORPUSCULAR HEMOGLOBIN 27 pg (27.0-31.0); MEAN CORPUSCULAR HGB CONC 31 g/dl (33.0-37.0); MEAN PLATELET VOLUME 12.2 fl (7.4-10.4); PLATELET COUNT 180 K/mm3 (130-400); REDCELL DISTRIBUTION WIDTH-CV 18.1 % (11.5-14.5)
--- NOTE | 2021-01-31 08:00 | NUR ---
PATIENT IS A&O. VSS ON TELE. NO C/O PAIN OR NAUSEA. PATIENT DID REPORTS LOOSE STOOLS X3. ABD IS ROUND, FIRM AND WITH POSITIVE BOWL SOUNDS. PATIENT IS ON CONTACT FOR POSITIVE C-DIFF. TOLERATING LOW FIBER DIET. RIGHT FORARM AND LEFT AC IV'S TO INT. BREAKFAST TRAY AT BEDSIDE. AM MEDS GIVEN. HEAD TO TOE ASSESSMENT COMPLETE, SEE CHARTING. SCD'S CURRENTLY OFF PER PATIENT REQUEST. NO OTHER NEEDS AT THIS TIME. CALL LIGHT IN REACH.
[2021-01-31 08:07] LABS: ALBUMIN 3.3 gm/dL (3.4-4.8); BILIRUBIN,TOTAL 0.9 mg/dL (0.2-1.2); CALCIUM 9.2 mg/dL (8.4-10.2); CREATININE, serum 1.15 mg/dL (0.57-1.11); MAGNESIUM 1.5 mg/dL (1.6-2.6); POTASSIUM 3.9 mmol/L (3.5-4.5); TOTAL PROTEIN 7.2 gm/dL (6.2-8.1)
--- NOTE | 2021-01-31 10:38 | NUR ---
nail mill worker met with patient to discuss the recommendation of HH services from OT. Patient is not interested in receiving services stating that she doesn't think it would benefit her any. Currently her granddaughter is helping her with all of her ADL's. Patient reports this is mainly due to the length of her oxygen tubing in addition to her stroke a few years ago. nail mill worker stressed the importance of keeping her strength up, however patient is still not interested.
--- NOTE | 2021-01-31 20:00 | NUR ---
PATIENT IS ALERT AND ORIENTED X4. PATIENT HAS IV TO RIGHT FOREARM AND LEFT AC. PATIENT IS ON BASELINE 4-5 L O2 AT HOME. NOW ON 5L NC. PATIENT IS ON CONTACT PRECAUTION FOR C DIFF. PATIENT ON LOW FIBER DIET. PATIENT ON TELE AND SCD. PATIENT DENIES PAIN OR FURTHER NEEDS AT THIS TIME. CALL LIGHT WITHIN REACH. HEAD TO TOE ASSESSMENT COMPLETE.
[2021-02-01 04:12] VITALS: BP 143/81; PULSE 78; TEMP 98.1
--- NOTE | 2021-02-01 06:36 | NUR ---
PATIENT SLEPT THROUGHOUT NIGHT. ONE LOOSE STOOL THROUGHOUT NIGHT. NO FURTHER NEEDS AT THIS TIME. WILL REPORT TO DAYSHIFT.
--- NOTE | 2021-02-01 08:00 | NUR ---
PATIENT IS A&O. VSS. OXYGEN SATS AT 94% ON 4L. NOTED SOME DYSPNEA AT REST. CALENDER OPERATOR HELPER REPORTED PATIENT BECAME VERY SOA AFTER AMBULATING TO BATHROOM LAST NIGHT, WITH OXYGEN ON, AND SATS DECREASED INTO THE 60-70'S BRIEFLY. PATIENT WAS ABLE TO RECOVER AFTER RESTING. RT AT BEDSIDE TO GIVE TREATMENT. PATIENT ALSO REPORTS SHE WAS TOLD HER CXR SHOWED ONE SIDE OF HER LUNGS IS A LITTLE WORSE. NOTED DEMINISHED A&P LUNG MEJIA. NO C/O PAIN OR NAUSEA. TOLERATING LOW FIBER DIET. RIGHT FORARM AND LEFT AC IV TO INT. HEAD TO TOE ASSESSMENT COMPLETE, SEE CHARTING. AM MEDS GIVEN. PATIENT ON CONTACT FOR C-DIFF. NO OTHER NEEDS AT THIS TIME. CALL LIGHT IN REACH. PT/OT TO SEE PATIENT TODAY
[2021-02-01 08:16] VITALS: BP 122/69; PULSE 108; TEMP 97.8
[2021-02-01 08:18] LABS: BASO % 0.5 % (0.0-2.0); EOS # 0.4 K/mm3 (0.0-0.7); EOS % 4.9 % (0-4.0); GRAN % 78.4 % (42.2-75.2); HEMATOCRIT 40.1 % (37.0-47.0); HEMOGLOBIN 12.3 g/dl (12.5-16.0); LYMPH # 0.9 K/mm3 (1.2-3.4); LYMPH % 9.6 % (20.0-51.0); MEAN CELL VOLUME 89 fl (80.0-100.0); MEAN CORPUSCULAR HEMOGLOBIN 27 pg (27.0-31.0); MEAN CORPUSCULAR HGB CONC 31 g/dl (33.0-37.0); MEAN PLATELET VOLUME 11.9 fl (7.4-10.4); MONO # 0.5 K/mm3 (0.1-0.6); MONO % 5.8 % (1.7-9.3); PLATELET COUNT 167 K/mm3 (130-400); RED BLOOD COUNT 4.51 M/mm3 (4.10-5.30); REDCELL DISTRIBUTION WIDTH-CV 18.1 % (11.5-14.5)
[2021-02-01 11:42] VITALS: BP 143/80; PULSE 103; TEMP 97.8
[2021-02-01 12:53] LABS: CREATININE, serum 1.1 mg/dL (0.57-1.11)
[2021-02-01 12:54] LABS: MAGNESIUM 1.8 mg/dL (1.6-2.3)
[2021-02-01 16:23] VITALS: BP 142/66; PULSE 116; TEMP 98.6
--- NOTE | 2021-02-01 16:30 | NUR ---
PATIENT AMBULATED TO BATHROOM WITH 4L OXYGEN AND GETS SOA WITH ACITIVITY. DURING THE SHORT WALK TO THE BATHROOM, PATIENT'S SATS DROPPED TO UPPER 70'S-LOW 80'S WHILE REMAINING ON 4L OXYGEN. PATIENT NOTED PURSED LIP BREATHING BUT RECOVERS FAIRYLY QUICKLY AFTER SHES BACK IN BED. HOSPITALIST NOTIFIED. PATIENT ALSO CONTINUES TO SUFFER FROM CHRONIC COUGH
[2021-02-01 19:28] VITALS: BP 157/83; PULSE 96; TEMP 98.6
--- NOTE | 2021-02-01 22:00 | NUR ---
PT IN BED, TAKES HS MED WITHOUT PROBLEM. HAS PRODUCTIVE COUGH OF YELLOW AT THIS TIME. LUNGS DIMINISHED. OXYGEN AT 4L/NC. REMAINS ON CDIFF PRECAUTIONS.
[2021-02-01 23:15] VITALS: BP 156/77; PULSE 92; TEMP 98.5
--- NOTE | 2021-02-01 23:30 | NUR ---
TAKES SCHEDULED PO MED WITHOUT PROBLEM.
--- NOTE | 2021-02-02 00:15 | NUR ---
ORDER TO RESUME ZOLOFT, DOSE GIVEN AT THIS TIME.
--- NOTE | 2021-02-02 02:30 | NUR ---
IV SOLUMEDROL GIVEN. PT UP TO BATHROOM WITH SBA. VOIDS AND BACK TO BED.
[2021-02-02 03:26] VITALS: BP 170/79; PULSE 92; TEMP 98.5
[2021-02-02 03:28] VITALS: BP 145/92
[2021-02-02 06:54] LABS: HEMATOCRIT 40.3 % (37.0-47.0); HEMOGLOBIN 12.8 g/dl (12.5-16.0); MEAN CELL VOLUME 85 fl (80.0-100.0); MEAN CORPUSCULAR HEMOGLOBIN 27 pg (27.0-31.0); MEAN CORPUSCULAR HGB CONC 32 g/dl (33.0-37.0); MEAN PLATELET VOLUME 11.1 fl (7.4-10.4); PLATELET COUNT 193 K/mm3 (130-400); RED BLOOD COUNT 4.72 M/mm3 (4.10-5.30); REDCELL DISTRIBUTION WIDTH-CV 17.7 % (11.5-14.5)
--- NOTE | 2021-02-02 06:57 | NUR ---
Pt resting in bed, playing on her phone. No needs verbalized, call light within reach
[2021-02-02 07:10] LABS: CALCIUM 9.6 mg/dL (8.4-10.2); CREATININE, serum 1.05 mg/dL (0.57-1.11); POTASSIUM 4.5 mmol/L (3.5-4.5)
[2021-02-02 07:16] LABS: BAND 13 % (0-10); LYMPHOCYTE 7 % (20.0-51.0); NEUTROPHILS 80 % (42.0-75.2); PLATELET ESTIMATE NORMAL (NORMAL)
[2021-02-02 08:14] VITALS: BP 142/67; PULSE 102; TEMP 97.6
--- NOTE | 2021-02-02 10:49 | NUR ---
*late entry, 02/01* Salud, APS worker, came and met with the patient.
[2021-02-02 11:40] VITALS: BP 147/63; PULSE 118; TEMP 98.4
--- NOTE | 2021-02-02 14:28 | NUR ---
Pt has returned from having CT. Pt is short of breath, but she has been getting this way off and on. Encouraged her to not talk and focus on her breathing. Grand reaganther remains present in the room.
[2021-02-02 15:38] VITALS: BP 154/83; PULSE 117; TEMP 98.5
--- NOTE | 2021-02-02 15:43 | NUR ---
PATIENT IS ALERT AND ORIENTED SITTING IN BED. GRANDDAUGHTER AT BEDSIDE HELPING WITH BED BATH AND LOTION. PATIENT IS ON 4L OXYMASK. STATES SHE IS "BREATHING BETTER THAN EARLIER". PATIENT HAS RIGHT FOREARM INT. PATIENT IS TACHYCARDIC IN THE 110-120'S. PATIENT HAD CT TODAY AND MAY NEED A OUTPATIENT HEART CATH. PATIENT WAITING TO DECIDE PLACEMENT OR HOME FOR DISCHARGE. GOT UP TO BATHROOM WITH PT. TIRED OUT EASILY. NO FURTHER NEEDS AT THIS TIME. CALL LIGHT WITHIN REACH.
[2021-02-02 19:53] VITALS: BP 129/82; PULSE 97; TEMP 98.3
--- NOTE | 2021-02-02 20:00 | NUR ---
Report received, assumed care for whipped topping finisher. Assessment complete. A&Ox4. Denies nausea. Rating pain 4/10 to head-described as ache. States she usually take imitrex for migraines. States nothing else works. Will talk to hospitalist about home medications. O2 currently at 4L/oxymask with O2 sats 94-98%. States she hasnt had any loose stools since the AM. Plan of care discussed for this shift to include HS meds/antibiotics/calling for questions/concerns. Verbalizes understanding/denies needs. Call light in reach. Will monitor.
--- NOTE | 2021-02-02 21:02 | NUR ---
[facility] at nurses station retching. Emesis of 100mls of undigested food. Zofran given per dr order. Will monitor.
[2021-02-03] VITALS (7 sets, daily range): BP systolic 125–138; BP diastolic 61–86; PULSE 89–110; TEMP 97.6–98.5
[2021-02-03 07:36] LABS: HEMATOCRIT 40.9 % (37.0-47.0); HEMOGLOBIN 12.9 g/dl (12.5-16.0); MEAN CELL VOLUME 87 fl (80.0-100.0); MEAN CORPUSCULAR HEMOGLOBIN 28 pg (27.0-31.0); MEAN CORPUSCULAR HGB CONC 32 g/dl (33.0-37.0); MEAN PLATELET VOLUME 11.1 fl (7.4-10.4); PLATELET COUNT 227 K/mm3 (130-400); RED BLOOD COUNT 4.68 M/mm3 (4.10-5.30); REDCELL DISTRIBUTION WIDTH-CV 18.6 % (11.5-14.5)
[2021-02-03 08:01] LABS: BAND 4 % (0-10); LYMPHOCYTE 3 % (20.0-51.0); METAMYELOCYTE 1 % (0-0); NEUTROPHILS 89 % (42.0-75.2); PLATELET ESTIMATE NORMAL (NORMAL)
[2021-02-03 08:11] LABS: CALCIUM 9.5 mg/dL (8.4-10.2); CREATININE, serum 1.25 mg/dL (0.57-1.11)
--- NOTE | 2021-02-03 08:34 | NUR ---
Pt resting in bed. She does get easily short of breath when having increased conversation. Lungs sound clear until i had her take deep breaths. She then started coughing and had exp wheezes. Pt has had breakfast, tolerated with no issues of nausea. Discussed her going home, pt plans to go home with Lisbet to her house. She does have concerns with making it up to her apartment as there is 3 flights of stairs. Pt reports not having any pain, no needs verbalized. Call light within reach
--- NOTE | 2021-02-03 10:15 | NUR ---
Pt received bed bath and hair wash yesterday, refusing today.
--- NOTE | 2021-02-03 11:39 | NUR ---
Pt has agreed to go to [facility]. Pt states that she will give it a try. Discussed that they will be able to get her to her appointments which would be very helpful for her. Pt stated that she agrees. Pt states she is not having any pain and is currently using the oxymask. Pt did drop down in to the 60s when working with PT while using the nasal cannula.
--- NOTE | 2021-02-03 11:44 | NUR ---
PT notified SW that the patient has three floors to walk up to get into her apartment. With the patient's oxygen levels dropping with any ambulation, she would recommend SNF now. ARASH staffed with the hospitalist. The patient may be able to discharge in the next day or two. SW met with the patient to review discharge and discuss SNF. SW discussed PT's concerns with the three floor of stairs to get up. The patient reports that she already has a plan with her granddaughter and her granddaughter's to help her get up the stairs. She reports that she would like to return home and would be open to home health from [facility]. ARASH contacted the patient's daughter, Kristy, and updated her on the above. Kristy reports that she would like to see the patient pursue SNF at [facility]. She reports that the patient has been to [facility] in the past. She is also concerned about her daughter and son-in-law getting the patient down the stairs and getting her to appointments. ARASH met with the patient and updated her on Kristy's concerns about what she would prefer for the patient. SW informed her how SNF can also transport her to her follow up appointments. The patient verbalized understanding. The patient is agreeable to try SNF. She preferred 1) [facility] 2) [facility]. ARASH contacted and faxed a referral to both facilities. Awaiting screens. *Discharge plan: SNF*
--- NOTE | 2021-02-03 13:53 | NUR ---
Carmel, at [facility], reports that they have to decline the patient.
--- NOTE | 2021-02-03 17:30 | NUR ---
Pt grand daughter Bernardo has been with pt most of the day off and on. Pt has required the same amount of O2, but does get short of breath quickly. Pt stated that she has agreed to go to [facility]. Pt stated that she knows it is best and they can take her to her appointments and make sure she gets to them. Pt had no pain complaints and continues to tolerated general diet
--- NOTE | 2021-02-03 23:48 | NUR ---
PT ASKS THIS NURSE WHY SHE HAS BEEN GETTING A DECREASED DOSE OF ZOLOFT @ BEDTIME. ZOLOFT 75MG IS RECORDED ON PT MED REC BUT 50MG IS ORDERED. EDITH NOVOA CALLED ET NEW ORDERS RECEIVED FOR AN INCREASED DOSE. PT HAD NOT BEEN TAKING MEDS @ HOME SO MEDICATION HAD TO BE TITRATED. PT INFOREMED OF NEW ORDERS, VERBALIZES UNDERSTANDING.
[2021-02-04 04:46] VITALS: BP 164/75; PULSE 98; TEMP 98.3
--- NOTE | 2021-02-04 06:32 | NUR ---
PT RESTING QUIETLY IN BED. HAS HAD NO LOOSE STOOLS. NO OTHER ACUTE ISSUES. SOB WITH ACTIVITY. OXYGEN IS ON VIA NC. HAS DENIED PAIN WHEN ASKED. PT HAS COUGHED A DRY COUGH INTERMITTENTLY THROUGH NIGHT. CALL LIGHT WITHIN REACH.
[2021-02-04 06:43] LABS: HEMATOCRIT 38.1 % (37.0-47.0); MEAN CELL VOLUME 88 fl (80.0-100.0); MEAN CORPUSCULAR HEMOGLOBIN 28 pg (27.0-31.0); MEAN CORPUSCULAR HGB CONC 32 g/dl (33.0-37.0); MEAN PLATELET VOLUME 10.7 fl (7.4-10.4); PLATELET COUNT 193 K/mm3 (130-400); RED BLOOD COUNT 4.32 M/mm3 (4.10-5.30); REDCELL DISTRIBUTION WIDTH-CV 18.4 % (11.5-14.5)
[2021-02-04 07:00] LABS: CALCIUM 8.6 mg/dL (8.4-10.2); CREATININE, serum 1.21 mg/dL (0.57-1.11); POTASSIUM 3.3 mmol/L (3.5-4.5)
[2021-02-04 07:39] LABS: BAND 5 % (0-10); LYMPHOCYTE 8 % (20.0-51.0); NEUTROPHILS 85 % (42.0-75.2); PLATELET ESTIMATE NORMAL (NORMAL)
[2021-02-04 07:45] VITALS: BP 122/68; PULSE 109; TEMP 98.2
--- NOTE | 2021-02-04 08:00 | NUR ---
PATIENT IS A&O. VSS WITH OXYGEN AT 4L PER NC TO KEEP SATS IN MID 90'S. PATIENT HAS EXTENSIVE RESPIRATORY HX AND WEARS 4L OF OXYGEN AT HOME. NOTED DYSPNEA WITH EXERTION. LUNG BASES ARE DEMINISHED. PATIENT HAS CHRONIC COUGH THAT NOTED THICK, PATEL COLORED SPUTUM IN TISSUE. NO C/O N/V. TOLERATING LOW FIBER DIET. AM MEDS GIVEN. HEAD TO TOE ASSESSMENT COMPLETE, SEE CHARTING. RIGHT WRIST IV TO INT. PT/OT CONSULTED. NO OTHER NEEDS. CALL LIGHT IN REACH.
[2021-02-04] MEDS ORDERED: VANCOCIN H125 MG/CAP PO (09:17)
[2021-02-04] MEDS ORDERED: LASIX 20MG TABL20 MG PO (09:18)
[2021-02-04] MEDS ORDERED: LIPITOR 40MG TA40 MG PO (09:19)
[2021-02-04] MEDS ORDERED: ZITHROMAX Z PA250 MG PO (09:19)
--- NOTE | 2021-02-04 10:00 | NUR ---
RT DID PULSE OX AND PATIENT IS ACTIVITY INTOLERANT. PATIENT'S SATS QUICKLY DECLINED INTO THE 70-80'S WITH 3 STEPS. RT REPORTED PATIENT REQUIRED 10L TO AMBULATE. PATIENT IS SOA WITH ANY ACTIVITY AND TAKE A COUPLE MINUTES TO RECOVER. RT IS RECOMMENDING PULM REHAB AND POSSIBLE TRANSFER TO [facility].
--- NOTE | 2021-02-04 10:11 | NUR ---
Placed patient on room air for exercise oximetry walk, while at rest on room air patient was 78% SPO2 patient needed 4L. While being ambulatory patient needed 10L to walk. RN and social work notified.
--- NOTE | 2021-02-04 10:45 | NUR ---
HOSPITALIST TEAM AGREES PATIENT SHOULD BEEN SCREENED FOR SELECT.
[2021-02-04 11:51] VITALS: BP 171/89; PULSE 92; TEMP 98.3
--- NOTE | 2021-02-04 14:31 | NUR ---
Edouard, at [facility], reports that they are able to accept the patient; but that they do have one active case of COVID on the rehab unit. ARASH updated the hospitalist. ARASH then attended clinical rounds. SW updated the patient and her granddaughter, Bernardo, of [facility] acceptance and of the active COVID. The patient reports that she is okay with still pursuing SNF at [facility]. The patient's granddaughter was supportive of her decision. An exercise oximetry was ordered. RT notified ARASH and the patient's RN that the patient required 10 liters of oxygen with ambulation. SW updated Edouard at [facility]. Edouard reports that they can get a high flow concentrator. The hospitalist was updated and [facility] in being recommended. The hospitalist discussed to [facility] with the patient. ARASH contacted and updated the patient's daughter, Kristy. Kristy's was on speaker phone. Kristy was agreeable to the plan. She states that after the patient is done with [facility] or rehab, she will be moving into her other granddaughter, Bernardo's, home. ARASH contacted and faxed a referral to Estevan at [facility]. Estevan reports that they will not be able to do anything or take the patient until Sunday. ARASH met with the patient to update. The patient is agreeable to the plan. ARASH attempted to contact and update Kristy. Kristy's answered. ARASH provided him with an update. SW to continue to follow. *Discharge plan: [facility]-possibly Sunday*
--- NOTE | 2021-02-04 15:39 | NUR ---
PATIENT C/O CHEST PAIN BUT STATES IT COULD BE FROM HER "ANXIETY". PATIENT ALSO SUFFERS FROM CHRONIC COUGH. NOTIFIED HOSPITALIST, SEE NEW ORDERS.
[2021-02-04 16:00] VITALS: BP 155/84; PULSE 99; TEMP 98.6
[2021-02-04 19:03] VITALS: BP 146/96; PULSE 95; TEMP 99.4
[2021-02-05] VITALS (7 sets, daily range): BP systolic 136–178; BP diastolic 74–100; PULSE 70–100; TEMP 98–100.3
--- NOTE | 2021-02-05 05:00 | NUR ---
PT AWAKENED TO TAKE MEDICATION. PT IS IN GOOD SPIRITS, APPEARS CALM, STATES THAT HER SLEEP WAS IMPROVED LAST NIGHT FROM BEFORE. OXYGEN ON @ 4L. RESPIRATIONS UNLABORED @ THIS TIME, DO BECOME EASILY LABORED WITH ACTIVITY. PT REQUESTS PEPSI TO DRINK. CALL LIGHT WITHIN REACH.
--- NOTE | 2021-02-05 05:40 | NUR ---
YANIQUE Fraire notified of elvevated blood pressure.
[2021-02-05 07:29] LABS: HEMATOCRIT 40.1 % (37.0-47.0); HEMOGLOBIN 12.5 g/dl (12.5-16.0); MEAN CELL VOLUME 88 fl (80.0-100.0); MEAN CORPUSCULAR HEMOGLOBIN 27 pg (27.0-31.0); MEAN CORPUSCULAR HGB CONC 31 g/dl (33.0-37.0); MEAN PLATELET VOLUME 11.5 fl (7.4-10.4); PLATELET COUNT 230 K/mm3 (130-400); RED BLOOD COUNT 4.57 M/mm3 (4.10-5.30); REDCELL DISTRIBUTION WIDTH-CV 18.3 % (11.5-14.5)
[2021-02-05 07:52] LABS: CALCIUM 8.6 mg/dL (8.4-10.2); CREATININE, serum 1.05 mg/dL (0.57-1.11); POTASSIUM 3.6 mmol/L (3.5-4.5)
[2021-02-05 08:41] LABS: LYMPHOCYTE 5 % (20.0-51.0); NEUTROPHILS 93 % (42.0-75.2)
[2021-02-05 08:43] LABS: ANISOCYTOSIS 1+; HYPOCHROMIA 1+; OVALOCYTES 1+; PLATELET ESTIMATE NORMAL (NORMAL)
--- NOTE | 2021-02-05 15:50 | NUR ---
PATIENT GETTING INTO SHOWER WITH NURSING STAFF. OXYGEN AT 10L PER NC WITH TANK WHILE SHOWERING.
--- NOTE | 2021-02-05 22:40 | NUR ---
Patient assessed. Continues on on oxygen at 4 L/min via NC. Has SOB and dyspnea with exertion, requiring oxygen to be increased to exertion. Continues on ABXs per orders. Voices no questions, needs, or concerns at this time. Resting in bed with call light within reach.
[2021-02-06] VITALS (7 sets, daily range): BP systolic 123–198; BP diastolic 74–106; PULSE 77–107; TEMP 97.6–98.8
--- NOTE | 2021-02-06 04:46 | NUR ---
Patient's BP 198/102. Call placed to Dr. Haywood and updated. New order received for PRN Hydralazine 10 mg PO every 4 hours PRN for systolic BP greater than 170. MAR updated, and given medication per order. Patient complained of headache, and offered APAP, but declined at this time. Voices no further questions, needs, or concerns at this time. Resting in bed with call light within reach.
--- NOTE | 2021-02-06 05:53 | NUR ---
Recheck BP 171/83 at this time.
--- NOTE | 2021-02-06 08:00 | NUR ---
PATIENT IS A&O. VSS WITH OXYGEN AT 4L PER NC TO KEEP SATS IN MID 90'S. PATIENT HAS EXTENSIVE RESPIRATORY HX AND WEARS 4L OF OXYGEN AT HOME. NOTED DYSPNEA WITH EXERTION. LUNG BASES ARE DEMINISHED. NOT COUGHING THIS AM. NO C/O N/V. TOLERATING LOW FIBER DIET. AM MEDS GIVEN. HEAD TO TOE ASSESSMENT COMPLETE, SEE CHARTING. RIGHT WRIST IV TO INT. PT/OT CONSULTED. NO OTHER NEEDS. CALL LIGHT IN REACH.
[2021-02-06 08:21] LABS: HEMATOCRIT 46.1 % (37.0-47.0); HEMOGLOBIN 14.4 g/dl (12.5-16.0); MEAN CELL VOLUME 88 fl (80.0-100.0); MEAN CORPUSCULAR HEMOGLOBIN 28 pg (27.0-31.0); MEAN CORPUSCULAR HGB CONC 31 g/dl (33.0-37.0); MEAN PLATELET VOLUME 10.8 fl (7.4-10.4); PLATELET COUNT 286 K/mm3 (130-400); RED BLOOD COUNT 5.24 M/mm3 (4.10-5.30); REDCELL DISTRIBUTION WIDTH-CV 18.6 % (11.5-14.5)
[2021-02-06 08:30] LABS: CALCIUM 8.5 mg/dL (8.4-10.2); CREATININE, serum 1.23 mg/dL (0.57-1.11); POTASSIUM 3.3 mmol/L (3.5-4.5)
[2021-02-06 10:03] LABS: EOSINOPHIL 2 % (0-4); LYMPHOCYTE 21 % (20.0-51.0); NEUTROPHILS 70 % (42.0-75.2); NUCLEATED RED BLOOD CELL 2 (0-6)
[2021-02-06 10:10] LABS: ANISOCYTOSIS 2+; HYPOCHROMIA 2+; PLATELET ESTIMATE NORMAL (NORMAL)
[2021-02-07 01:03] VITALS: BP 177/87; PULSE 76; TEMP 98.1
[2021-02-07 05:08] VITALS: BP 189/106; PULSE 71; TEMP 98.4
[2021-02-07 05:59] VITALS: BP 131/77
--- NOTE | 2021-02-07 06:02 | NUR ---
PT'S BP IS ELEVATED @ 189/106 @ 0508. PT ALSO HAS HEADACHE, STATES THAT SHE SOMETIMES GETS MIGRAINES ET THAT'S WHAT IT FEELS LIKE. Ame NOVOA NOTIFIED. NEW ORDERS RECEIVED FOR PRN HYDRALAZINE IV. HYDRALAZINE ET TYLENOL PO ADMINISTERED. PT RE-ASSESSED @ 0518. BP IS 133/77. PT STATES THAT SHE DOES STILL HAVE HEADACHE BUT THAT IT HAS IMPROVED. DENIES OTHER NEEDS. WILL CONTINUE TO MONITOR.
[2021-02-07 07:13] LABS: PATHOLOGY DIFF REVIEW OK +
[2021-02-07 08:22] LABS: HEMATOCRIT 41.5 % (37.0-47.0); HEMOGLOBIN 13.4 g/dl (12.5-16.0); MEAN CELL VOLUME 84 fl (80.0-100.0); MEAN CORPUSCULAR HEMOGLOBIN 27 pg (27.0-31.0); MEAN CORPUSCULAR HGB CONC 32 g/dl (33.0-37.0); MEAN PLATELET VOLUME 10.9 fl (7.4-10.4); PLATELET COUNT 217 K/mm3 (130-400); RED BLOOD COUNT 4.93 M/mm3 (4.10-5.30); REDCELL DISTRIBUTION WIDTH-CV 18.1 % (11.5-14.5)
[2021-02-07 08:24] VITALS: BP 95/68; PULSE 87; TEMP 98
[2021-02-07 08:44] LABS: CALCIUM 8.2 mg/dL (8.4-10.2); CREATININE, serum 1.25 mg/dL (0.57-1.11); POTASSIUM 3.5 mmol/L (3.5-4.5)
[2021-02-07 09:18] LABS: MAGNESIUM 1.8 mg/dL (1.6-2.6); PHOSPHOROUS 3.8 mg/dL (2.3-4.7)
[2021-02-07 09:38] LABS: BAND 2 % (0-10); EOSINOPHIL 1 % (0-4); LYMPHOCYTE 12 % (20.0-51.0); METAMYELOCYTE 1 % (0-0); NEUTROPHILS 75 % (42.0-75.2); OVALOCYTES 1+; PLATELET ESTIMATE NORMAL (NORMAL)
--- NOTE | 2021-02-07 11:15 | NUR ---
PATIENT HAS BEEN ACCEPTED TO [facility]. SAILAJAGREYLUIS M IS HERE AND IS NOW AT THE DESK INQUIRING ABOUT CHANGING THE DISCHARGE PLAN TO [facility]. MUD MIXER OPERATOR INVOLED.
--- NOTE | 2021-02-07 11:18 | NUR ---
RAASH contacted Estevan with [facility] who stated they do have a bed in today. Will await his call regarding time. Informed patient, daughter, and hospitalist. ARASH will cont following
--- NOTE | 2021-02-07 11:55 | NUR ---
ARASH recd call from Estevan at [facility] They can acceppt patient today/02/07 in [facility]. They can take her between 2 - 3 preferably. Pt will go to room #121. RN report# is: [phone]. Receiving doc is Dr. Babcock. Patient will need EMS transport. ARASH attempted to notify dtr (Kristy) but answered. This SW relayed the above info. ARASH also notified patient with granddaughter Jenni present. After this worker left the room, granddaughter approached me asking me if pt could go to [facility] rather than [facility] stating they are able to manage her care and meet 10L of 02 needs. This worker explained that if patient needed a higher level of care that the DC wouldn't be equipped to care for her and she would have to return to hospital. ARASH Ramirez contacted EMS to set up transport. shuttle preparation supervisor time is 2:30. Notified RN, patient, and family. Discharge orders faxed to [facility].
[2021-02-07 12:26] VITALS: BP 138/78; PULSE 78; TEMP 98
--- NOTE | 2021-02-07 14:45 | NUR ---
PATIENT DISCHARGING VIA EMS TO [facility]. GAVE INFO PACKET TO EMS. GRAND-DAUGHTER TAKING PERSONAL BELONGINGS AND FOLLOWING EMS. EMS REQUESTED IV SITE FOR TRANSFER. PLACED 20 GAUGE IV INTO RIGHT HAND ON FIRST ATTEMPTS AND TO INT. CALLED REPORT TO [facility] NURSE. PATIENT DISCHARGED.
== END 2021-02-07 14:45 | DRG 371 ==
LOC: COL.ER 08:13 → SURG 12:23
PROVIDERS: Emergency Medicine; Internal Medicine; Physician Assistant; ADMIT Student in an Organized Health Care Education/Training Program
DX: A04.72 Enterocolitis due to Clostridium difficile, not specified as recurrent (principal); J96.21 Acute and chronic respiratory failure with hypoxia; N17.9 Acute kidney failure, unspecified; R65.10 Systemic inflammatory response syndrome (SIRS) of non-infectious origin without acute organ dysfunction; J44.1 Chronic obstructive pulmonary disease with (acute) exacerbation; I48.91 Unspecified atrial fibrillation; I71.4 Abdominal aortic aneurysm, without rupture; I27.20 Pulmonary hypertension, unspecified; Z20.822 Contact with and (suspected) exposure to COVID-19; I12.9 Hypertensive chronic kidney disease with stage 1 through stage 4 chronic kidney disease, or unspecified chronic kidney disease; N18.9 Chronic kidney disease, unspecified; M32.9 Systemic lupus erythematosus, unspecified; E83.42 Hypomagnesemia; D63.1 Anemia in chronic kidney disease; I73.9 Peripheral vascular disease, unspecified; F32.9 Major depressive disorder, single episode, unspecified; G89.29 Other chronic pain; M54.50 Low back pain, unspecified; E80.6 Other disorders of bilirubin metabolism; E86.0 Dehydration; E78.5 Hyperlipidemia, unspecified; W19.XXXA Unspecified fall, initial encounter; Y92.009 Unspecified place in unspecified non-institutional (private) residence as the place of occurrence of the external cause; Z79.82 Long term (current) use of aspirin; Z79.52 Long term (current) use of systemic steroids; Z95.818 Presence of other cardiac implants and grafts; Z86.73 Personal history of transient ischemic attack (TIA), and cerebral infarction without residual deficits; Z95.820 Peripheral vascular angioplasty status with implants and grafts; Z90.49 Acquired absence of other specified parts of digestive tract; Z91.19 Patient's noncompliance with other medical treatment and regimen; Z87.891 Personal history of nicotine dependence
CPT/HCPCS: 99223-AI; 99232-AI; 99233-AI; 99239; C9113; J0360; J0696; J2405; J2543; J2920; J3475; J7030; J7120; J7512; Q9967

== ENCOUNTER 2021-04-03 13:32 | Inpatient (IN) | payer MEDICARE, MEDICAID ==
[~2021-04-03] VITALS: Ht 152.4 cm; Wt 64.5 kg
[~2021-04-03 13:32] MED LIST changes: +DULERA1 ARO IH; +LASIX 20MG TABL20 MG PO; +PRILOSEC 20MG20 MG PO; +VANCOCIN H125 MG/CAP PO
[2021-04-03 15:04] LABS: HEMATOCRIT 40.1 % (37.0-47.0); HEMOGLOBIN 12.3 g/dl (12.5-16.0); MEAN CELL VOLUME 91 fl (80.0-100.0); MEAN CORPUSCULAR HEMOGLOBIN 28 pg (27.0-31.0); MEAN CORPUSCULAR HGB CONC 31 g/dl (33.0-37.0); MEAN PLATELET VOLUME 11.2 fl (7.4-10.4); PLATELET COUNT 164 K/mm3 (130-400); RED BLOOD COUNT 4.43 M/mm3 (4.10-5.30); REDCELL DISTRIBUTION WIDTH-CV 17.3 % (11.5-14.5)
[2021-04-03 15:36] LABS: ALANINE AMINOTRANSFERASE 20 U/L (0-55); ALBUMIN 3.3 gm/dL (3.4-4.8); ALKALINE PHOSPHATASE 120 U/L (40-150); ANION GAP 12 mmol/L (7-16); AST,SGOT 22 U/L (5-34); BILIRUBIN,TOTAL 1.7 mg/dL (0.2-1.2); BLOOD UREA NITROGEN 17 mg/dL (10-20); CALCIUM 8.5 mg/dL (8.4-10.2); CARBON DIOXIDE 19 mmol/L (23-31); CHLORIDE 106 mmol/L (98-107); CREATININE, serum 1.75 mg/dL (0.57-1.11); GLUCOSE 183 mg/dL (70-99); POTASSIUM 4.7 mmol/L (3.5-4.5); SODIUM 137 mmol/L (136-145); TOTAL PROTEIN 6.8 gm/dL (6.2-8.1)
[2021-04-03 15:42] LABS: TROPONIN-I < 0.010 ng/mL (0.00-0.033)
[2021-04-03 16:26] LABS: LYMPHOCYTE 3 % (20.0-51.0); NEUTROPHILS 95 % (42.0-75.2); NUCLEATED RED BLOOD CELL 1 (0-6)
[2021-04-03 16:30] LABS: ANISOCYTOSIS 1+; HYPOCHROMIA 3+; PLATELET ESTIMATE NORMAL (NORMAL)
[2021-04-03 17:28] LABS: COLLECTION METHOD CLEAN CATCH
[2021-04-03 17:37] LABS: MUCOUS Present (NOT PRESENT); PH 5 (5-8); SQUAMOUS EPITHELIAL 0-2 /hpf (0-10); URINE APPEARANCE Clear (CLEAR/HAZY); URINE BACTERIA Rare (NONE SEEN); URINE BILIRUBIN Negative (NEGATIVE); URINE BLOOD 1+ (NEGATIVE); URINE COLOR Straw (YELLOW); URINE GLUCOSE Negative (NEGATIVE); URINE KETONE Negative (NEGATIVE); URINE LEUKOCYTE ESTERASE Trace (NEGATIVE); URINE NITRATE Negative (NEGATIVE); URINE PROTEIN(semi-quant) Negative (NEGATIVE); URINE RBC 0-2 /hpf (0-2); URINE UROBILINOGEN Negative (NEGATIVE); URINE WBC 0-2 /hpf (0-2)
[2021-04-03] MEDS ORDERED: ALDACTONE50 MG PO (21:29)
[2021-04-03] MEDS ORDERED: LYRICA 25MG CAP25 MG PO (21:33)
[2021-04-03] MEDS ORDERED: IMITREX 25MG TA25 MG PO (21:37)
[2021-04-03] MEDS ORDERED: PROTONIX 40MG T40 MG PO (21:38)
[2021-04-03] MEDS ORDERED: ROXICODONE 55 MG/TAB PO (21:40)
[2021-04-03] MEDS ORDERED: CENA K20 MEQ/15 PO (21:46)
[2021-04-03] MEDS ORDERED: PREDNISONE10 MG (21:46)
[2021-04-03] MEDS ORDERED: SALONPAS1 EACH TP (21:47)
[2021-04-03 22:00] VITALS: BP 127/79; PULSE 71; TEMP 97.5
--- NOTE | 2021-04-03 22:28 | NUR ---
PT ARRIVED TO FLOOR APPROXIMATELY 2029. DURING ADMISSION, PT STATED IV SITE WAS LEAKING. THIS RN LOOKED AT IV SITE, DID NOT NOTICE ANY OBVIOUS LEAKS, SITE THEN BEGAN TO BLEED. THIS RN VISUALIZED SITE AGAIN AND NOTED THAT IV CATHETER HAD DISLODGED FROM SITE. THIS RN REMOVED REST OF IV AND STOPPED FLUIDS. THIS RN HAD ASSISTANT DISTRICT ATTORNEY PLACE AN IV IN RIGHT FOREARM DUE TO PT STATE OF HARD STICK AND SMALL VEINS. IV FLUIDS RESUMED AT 125 ML/HR. OXYGEN WAS AT 100% ON NRB. ASSISTANT DISTRICT ATTORNEY STATED THAT NRB ARE NOT OPTIMAL FOR COPD PATIENTS, CHANGED TO NC AT 5 L. PT OXYGEN AT 91% CURRENTLY. WILL TALK TO RESPIRATORY ABOUT OXY MASK PER PATIENT REQUEST.
[2021-04-03 23:23] VITALS: BP 130/67; PULSE 87; TEMP 97.7
[2021-04-04] VITALS: BP 130/67; PULSE 87; TEMP 97.7
--- NOTE | 2021-04-04 02:24 | NUR ---
ASSISTED PT TO RESTROOM. PT IS STABLE ON FEET TO BATHROOM. ABLE TO MOVE WITH STEADY GAIT AND NO WEAKNESS. HOWEVER ON WAY BACK FROM RESTROOM TO BED, PT SHOWS SIGNS OF SOB AND DYSPNEA. PT LAYED DOWN AND HAD SOME LABORED BREATHING, ASKED ABOUT STANDBY INHALERS. THIS RN STATED SHE CAN CALL RT, PT STATED SHE IS OK NOW. WILL KEEP PATIENT SBA.
[2021-04-04 05:31] VITALS: BP 123/73; PULSE 79; TEMP 97.8
[2021-04-04 07:05] LABS: BASO % 0.2 % (0.0-2.0); GRAN # 7.8 K/mm3 (1.4-6.5); GRAN % 86.6 % (42.2-75.2); HEMATOCRIT 40.8 % (37.0-47.0); HEMOGLOBIN 12.8 g/dl (12.5-16.0); LYMPH # 0.9 K/mm3 (1.2-3.4); LYMPH % 9.4 % (20.0-51.0); MEAN CELL VOLUME 89 fl (80.0-100.0); MEAN CORPUSCULAR HEMOGLOBIN 28 pg (27.0-31.0); MEAN CORPUSCULAR HGB CONC 31 g/dl (33.0-37.0); MEAN PLATELET VOLUME 10.9 fl (7.4-10.4); MONO # 0.2 K/mm3 (0.1-0.6); MONO % 2.7 % (1.7-9.3); PLATELET COUNT 182 K/mm3 (130-400); REDCELL DISTRIBUTION WIDTH-CV 17.2 % (11.5-14.5)
[2021-04-04 07:22] LABS: ALBUMIN 3.2 gm/dL (3.4-4.8); CALCIUM 8.5 mg/dL (8.4-10.2); CREATININE, serum 1.44 mg/dL (0.57-1.11); MAGNESIUM 1.6 mg/dL (1.6-2.6); PHOSPHOROUS 2.2 mg/dL (2.3-4.7)
[2021-04-04 08:05] VITALS: BP 125/64; PULSE 105; TEMP 96.1
--- NOTE | 2021-04-04 08:55 | NUR ---
WALKED IN ROOM TO DO INHALER. PT WAS VERY SOB WAITH OT BESIDE AFTER GOING TO BATHROOM. SP02 70% ON 5 LPM NC. PLACED ON OXYMASK 15 LPM SPO2 97% AFTER SEVERAL MINUTES. GRADUALLY TITRATED DOWN TO 5 LPM OXYMASK 94% PT BASELINE IS 5 LPM NC.
--- NOTE | 2021-04-04 10:07 | NUR ---
PT ATTEMPTING TO WORK WITH PT EARLIER IN AM, DESAT TO 70% WITH MOVEMENT IN THE BED, RT NOTIFIED AND HELPED RECOVER PT. UPON ENTRY NOW PT PLEASANT, AOX4, HAVING SOB AT REST, TAKING DEEP BREATHS, ON 7L, WEANED DOWN TO 5L BASELINE SATTING 94%. ASSESSMENT PERFORMED, MEDICATIONS GIVEN, PT HAVING INC DIAPHORESIS, TOOK OFF PT BLANKETS, NO OTHER NEEDS
--- NOTE | 2021-04-04 11:02 | NUR ---
Initial visit; Patient thanked First Helper for looking in on her and offering God's blessings. Patient will be in First [employer]'s prayers.
[2021-04-04 11:58] VITALS: BP 132/63; PULSE 105; TEMP 98.6
--- NOTE | 2021-04-04 13:31 | NUR ---
electronic equipment trades worker met with patient to discuss discharge plan. Patient reports that she lives with her granddaughter Bernardo ([phone]) in [place]. Patient reports that she is independent with her activities of daily living and she utilizes a cane,walker and wheelchair to assit with mobility due to her COPD/SOB. Patient is on oxygen at home and is on 5L at baseline. O2 is managed through [employer]. PCP is and [facility]. Patient reports that her daughter Kristy ([phone]) is her DPOA-HC. Verified that the hospital has a copy of it on her record. Once ready for discharge, patient is planning on returning home with Bernardo. Discharge plan: Home
--- NOTE | 2021-04-04 15:13 | NUR ---
PT UP TO BEDSIDE COMMODE, DESAT TO 68% ON 5L NC. INC TO 15L, PT BACK IN BED, ENCOURAGING DEEP BREATHING, AFTER 5-10MIN ON 15L PT INC TO 90%. ATTEMPTING TO TITRATE BACK DOWN. STEFAN NOTIFIED OF PT CONDITION, XRAY ORDERED, ANXIETY MEDS ORDERED, RADIOLOGY NOTIFIED OF XRAY ORDER. PT REPORTING PAIN IN RLL. NO OTHER NEEDS
--- NOTE | 2021-04-04 15:18 | NUR ---
PT TITRATED BACK DOWN TO 5L, SATTING 94%
--- NOTE | 2021-04-04 15:31 | NUR ---
PT DESATTING TO 81% WITH COUGHING. TTRATED BACK TO 10L, ATTARAX GIVEN TITRATED DOWN TO 7L SATTING 90%.
[2021-04-04 15:51] VITALS: BP 100/85; PULSE 110; TEMP 97.7
--- NOTE | 2021-04-04 18:35 | NUR ---
PT PLEASANT, AOX4, DESATS WITH COUGH OR ANY MOVEMENT INTO THE 60'S/70'S, TITRATED UP UNTIL PT RECOVERS. INC SOB DURING SHIFT.
--- NOTE | 2021-04-04 18:53 | NUR ---
FACE SHEET FAXED TO DR. BOSCH OFFICE PER ADDITIONAL NURSING ORDER.
--- NOTE | 2021-04-04 19:08 | NUR ---
Patient sitting up in bed and watching Tv at shift change. Currently on 10L oxygen via oxymask. No acute respiratory distress noted. Call light in reach. Will continue to monitor.
[2021-04-04 19:22] VITALS: BP 151/81; PULSE 110; TEMP 98
--- NOTE | 2021-04-04 22:35 | NUR ---
Patient assessed. Patient A/Ox4. Patient denies SOB while at rest. SPO2 remains above 95% on 10L via oxymask. Titrated down to 6L around 8 pm remains above 93% while at rest. But with any minimal activity, desatting to 86-88%. Checked on patient's SPO2 level frequently and titrated oxygen level to maintain above 90%. Call light in reach. Will continue to monitor.
[2021-04-05 01:48] VITALS: BP 159/88; PULSE 97; TEMP 98.1
--- NOTE | 2021-04-05 05:36 | NUR ---
Patient's SPO2 dropped to 70-80% a few times with using bed díaz to void and repositioning last night but able to recover above 90% after a few minutes. Patient resting in bed with eyes closed at this time. SPO2 96% on 5L via oxymask while at rest. Call light in reach. Will continue to monitor.
[2021-04-05 07:09] LABS: BASO % 0.1 % (0.0-2.0); GRAN # 13.3 K/mm3 (1.4-6.5); GRAN % 85.3 % (42.2-75.2); HEMOGLOBIN 11.8 g/dl (12.5-16.0); LYMPH % 6.1 % (20.0-51.0); MEAN CELL VOLUME 86 fl (80.0-100.0); MEAN CORPUSCULAR HEMOGLOBIN 28 pg (27.0-31.0); MEAN CORPUSCULAR HGB CONC 32 g/dl (33.0-37.0); MEAN PLATELET VOLUME 11.2 fl (7.4-10.4); MONO # 1.2 K/mm3 (0.1-0.6); MONO % 7.5 % (1.7-9.3); PLATELET COUNT 189 K/mm3 (130-400); RED BLOOD COUNT 4.27 M/mm3 (4.10-5.30); REDCELL DISTRIBUTION WIDTH-CV 17.3 % (11.5-14.5)
[2021-04-05 07:10] LABS: HEMATOCRIT 36.8 % (37.0-47.0)
[2021-04-05 07:19] LABS: ALBUMIN 3.2 gm/dL (3.4-4.8); CALCIUM 9.3 mg/dL (8.4-10.2); CREATININE, serum 1.24 mg/dL (0.57-1.11); MAGNESIUM 1.7 mg/dL (1.6-2.6); PHOSPHOROUS 2.5 mg/dL (2.3-4.7); POTASSIUM 4.2 mmol/L (3.5-4.5)
[2021-04-05 07:52] VITALS: BP 145/95; PULSE 75; TEMP 97.8
--- NOTE | 2021-04-05 08:40 | NUR ---
PT DENIES PAIN, PT IV ON RF BURNING WITH FLUSHING, SOME REDNESS, IV REMOVED, NEW IV PLACED TO LFA AND IV ANX STARTED. PT DESATS WITH ANY ACTIVITY, ROLLING TO GET OFF OF COMMODE CAUSES PT TO DSAT TO 68%, PT RECOVERS ON 10L AND THEN WEANED DOWN. MEDICATIONS GIVEN, CALL LIGHT WITHIN REACH, ASSESSMENT PERFORMED, NO OTHER NEEDS
[2021-04-05 12:30] VITALS: BP 153/87; PULSE 82
[2021-04-05 15:55] VITALS: BP 123/96; BP 165/88; PULSE 87; TEMP 97.5
--- NOTE | 2021-04-05 17:27 | NUR ---
PT DESATS WITH MOVEMENT IN BED, DENIES PAIN, REPORTS SOB AT REST, MEDS GIVEN PER ORDERS, NO OTHER NEEDS
--- NOTE | 2021-04-05 19:00 | NUR ---
RT giving the patient a breathing treatment. Patient had a coughing episode while eating. 10L NC O2, breathing more controlled. A&Ox4. VSS. IV CDI. Denies pain, reports some chest discomfort r/t coughing. No further needs expressed. Will continue monitoring breathing. Call light within reach
[2021-04-05 19:49] VITALS: BP 155/92; PULSE 100; TEMP 97.8
--- NOTE | 2021-04-05 23:50 | NUR ---
Received bedside report from YANIQUE Darby. Patient waching TV in bed. Patient A/Ox4. Patient currently on 7L oxygen via oxymask. SPO2 97-98% on 7L. Titrated oxygen down to 5L and satting at 96% at this time. Call light in reach. Will continue to monitor.
[2021-04-06 00:26] VITALS: BP 138/91; PULSE 85; TEMP 98.2
[2021-04-06 04:07] VITALS: BP 153/80; PULSE 90; TEMP 98.2
[2021-04-06 07:07] LABS: BASO % 0.1 % (0.0-2.0); GRAN # 11.7 K/mm3 (1.4-6.5); GRAN % 84.2 % (42.2-75.2); HEMATOCRIT 38.3 % (37.0-47.0); HEMOGLOBIN 11.8 g/dl (12.5-16.0); LYMPH # 0.9 K/mm3 (1.2-3.4); LYMPH % 6.5 % (20.0-51.0); MEAN CORPUSCULAR HEMOGLOBIN 28 pg (27-31); MEAN CORPUSCULAR HGB CONC 31 g/dl (33.0-37.0); MEAN PLATELET VOLUME 11.7 fl (7.4-10.4); MONO # 1.2 K/mm3 (0.1-0.6); MONO % 8.3 % (1.7-9.3); PLATELET COUNT 191 K/mm3 (130-400); RED BLOOD COUNT 4.23 M/mm3 (4.10-5.30); REDCELL DISTRIBUTION WIDTH-CV 17.3 % (11.5-14.5)
[2021-04-06 07:09] LABS: ALBUMIN 3.2 gm/dL (3.4-4.8); CALCIUM 8.9 mg/dL (8.4-10.2); CREATININE, serum 1.36 mg/dL (0.57-1.11); MAGNESIUM 1.7 mg/dL (1.6-2.6); PHOSPHOROUS 2.8 mg/dL (2.3-4.7)
[2021-04-06 07:10] LABS: MEAN CELL VOLUME 91 fl (80.0-100.0)
--- NOTE | 2021-04-06 08:00 | NUR ---
PT PLEASANT, AOX4, REPORTS PAIN IN BACK THAT IS CHRONIC, LIDOCAINE PATCH PLACED, PT DENIED NEED FOR TYLENOL OR ENRIQUE AND STATES "IT DOESN'T WORK WITH THIS TYPE OF PAIN". PT GETS EXTREMELY SOB WITH ANY MOVEMENT OR COUGHING FIT. PT GRANDAUGHTER YESTERDAY REPORTS THAT PT DOES NOT MOVE OR DO EXERCISES AT HOME AND STAYS IN BED. ASSESSMENT PERFORMED, ALL MEDICATIONS GIVEN, DOXY INFUSING, PT ATE 100% OF BREAKFAST, NO OTHER NEEDS
[2021-04-06 08:14] VITALS: BP 153/79; PULSE 84; TEMP 97.4
[2021-04-06 12:35] VITALS: BP 159/71; PULSE 86; TEMP 97.6
--- NOTE | 2021-04-06 15:18 | NUR ---
Follow-up visit; Patient remembered Hardware Developer visiting her another time and thanked Hardware Developer for looking in on her again today and offering God's blessings.
--- NOTE | 2021-04-06 16:08 | NUR ---
PT MOVED TO [facility] WITH OXYGEN TANK, MEDICATIONS GIVEN PER ORDERS
[2021-04-06 16:30] VITALS: BP 117/61; BP 176/88; PULSE 83; PULSE 91; TEMP 97.7; TEMP 98.8
--- NOTE | 2021-04-06 16:32 | NUR ---
PT ASSISTED BACK INTO ROOM, OXYGEN FLOWING, PT HAD COUGHING FIT, RECOVERED ON OXYGEN, NO OTHER NEEDS
--- NOTE | 2021-04-06 18:01 | NUR ---
PT PLEASANT, WANTS TO DISCHARE BUT UNDERSTANDS NEED TO STAY, IV RFA HAS PHLEBITIS, REMOVED AND NEW 22G STARTED TO RFA. ANX ADMINISTERED, NO OTHER NEEDS
[2021-04-06 19:40] VITALS: BP 119/83; PULSE 89; TEMP 97.7
--- NOTE | 2021-04-06 20:00 | NUR ---
PATIENT IS A&O. VSS ON TELE. 02 @ 5L TO KEEP SATS ABOVE 92%. PATIENT HAS HX OF COPD AND WEARS 5L AT HOME. NOTED DYSPNEA ON EXERTION. A&P LUNG MEJIA ARE DEMINISHED. PATIENT ON SEIZURE PRECAUTIONS FOR HX OF SEIZURES X1. NEURO CHECKS WNL. HEAD TO TOE ASSESSMENT COMPLETE, SEE CHARTING. EVENING MEDS GIVEN. PT/OT/ST CONSULTED. LEFT FORARM IV TO INT. NO OTHER NEEDS. CALL LIGHT IN REACH.
[2021-04-07] VITALS: BP 178/84; PULSE 72; TEMP 97.9
[2021-04-07 04:03] VITALS: BP 124/74; PULSE 102; TEMP 98
--- NOTE | 2021-04-07 05:28 | NUR ---
Patient on 4L oxygen via NC this morning. Patient denies SOB while at rest. Patient reports feeling better this morning overall. Call light in reach.
--- NOTE | 2021-04-07 06:03 | NUR ---
Patient's BP 178/84 at midnight. Patient denies chest pain or hypertensive symptoms. PRN hydralazine given per JUN. BP 124/74 this morning.
[2021-04-07 06:21] LABS: BASO % 0.1 % (0.0-2.0); EOS % 0.1 % (0.0-4.0); GRAN # 10.6 K/mm3 (1.4-6.5); GRAN % 77.1 % (42.2-75.2); HEMATOCRIT 41.7 % (37.0-47.0); HEMOGLOBIN 13.5 g/dl (12.5-16.0); LYMPH # 1.7 K/mm3 (1.2-3.4); LYMPH % 12.1 % (20.0-51.0); MEAN CELL VOLUME 87 fl (80.0-100.0); MEAN CORPUSCULAR HEMOGLOBIN 28 pg (27-31); MEAN CORPUSCULAR HGB CONC 32 g/dl (33.0-37.0); MEAN PLATELET VOLUME 11.1 fl (7.4-10.4); MONO # 1.3 K/mm3 (0.1-0.6); MONO % 9.7 % (1.7-9.3); PLATELET COUNT 195 K/mm3 (130-400); RED BLOOD COUNT 4.79 M/mm3 (4.10-5.30); REDCELL DISTRIBUTION WIDTH-CV 17.1 % (11.5-14.5)
[2021-04-07 06:48] LABS: ALBUMIN 3.3 gm/dL (3.4-4.8); CALCIUM 9.2 mg/dL (8.4-10.2); CREATININE, serum 1.32 mg/dL (0.57-1.11); MAGNESIUM 1.7 mg/dL (1.6-2.6); PHOSPHOROUS 2.6 mg/dL (2.3-4.7)
[2021-04-07 08:27] VITALS: BP 125/79; PULSE 85; TEMP 98.1
--- NOTE | 2021-04-07 08:41 | NUR ---
(late entry) Spoke with patient about referring her to [facility]. Patient states that she does not want to go back there and that last time was "too much" for her. Hospitalist informed
--- NOTE | 2021-04-07 09:00 | NUR ---
PT ALERT AND ORIENTED. NEURO CHECK PERFORMED PER ORDERS, NO SIGNIFICANT ALTERATION NOTED. PT LUNGS DIMINISHED IN ALL LOBES, MILD EXPIRATORY WHEEZES NOTED IN LEFT LOWER LOBE. PT REPORTS SOA, SPO2 CHECKED AT THIS TIME, 93% ON 5L. PT HAS ACTIVE BOWEL SOUNDS, NON-TENDER. PT CAP REFILL <3S, PULSES 2+ IN ALL EXTREMITIES. PT PAIN IN BACK MANAGED WITH LIDOCAINE PATCH PER ORDERS. 3 PT CALL LIGHT WITHIN REACH.
[2021-04-07 11:23] VITALS: BP 132/73; PULSE 80; TEMP 97.9
--- NOTE | 2021-04-07 11:45 | NUR ---
Dr. Starks notified ARASH that he would like a referral to [facility] on the patient. ARASH contacted and faxed a referral to Estevan at [facility]. Estevan arrived to the hospital and met with the patient. The patient's daughter was FaceTiming the patient. Estevan informed ARASH that he was also able to talk to the daughter. The daughter was supportive of [facility]. The patient is now agreeable to [facility]. Awaiting screen. Estevan reports that they may be able to take the patient today. The clinical team was updated.
--- NOTE | 2021-04-07 15:29 | NUR ---
Estevan, at [facility], reports that the patient meets criteria. He reports that they will probably not have a bed tomorrow, but possibly over the weekend.
[2021-04-07 15:36] VITALS: BP 130/72; PULSE 82; TEMP 97.8
--- NOTE | 2021-04-07 17:30 | NUR ---
PT CONTINUING ON PLAN OF CARE. PT RECEIVING ABX PER ORDERS. PT NEURO CHECK PERFORMED PER ORDERS, NO SIGNIFICANT CHANGES NOTED IN PT STATUS. PT VITALS REMAINED STABLE THIS SHIFT. PT FAMILY VISITED THIS EVENING. PT ABLE TO CALL FOR NEEDS.
--- NOTE | 2021-04-07 17:45 | NUR ---
PT CHOKED ON PIECE OF FOOD, DESATURATION TO 77%, SIGNFICANT COUGHING FIT. PT LUNGS AUSCULTATED, NO SIGNIFICANT BLOCKAGED NOTED, ABLE TO HEAR AIR FLOW IN ALL LOBES. PT SATURATION TOOK APPROXIMATELY 5 MINUTES TO RETURN TO 93% ON 6L VIA NASAL CANNULA.
[2021-04-07 20:37] VITALS: BP 123/63; PULSE 98; TEMP 98.2
--- NOTE | 2021-04-07 22:19 | NUR ---
Patient assessed around 2034. Alert and oriented x 4, and able to make needs known. Denies pain and discomfort. INT to right forearm. Reports SOB and dyspnea at rest. On oxygen at 5 L/min via NC. Voices no questions, needs, or concerns at this time. In bed with call light within reach.
[2021-04-08] VITALS: BP 180/88; PULSE 81; TEMP 97.8
[2021-04-08 05:35] VITALS: BP 143/73; PULSE 77; TEMP 98
--- NOTE | 2021-04-08 06:03 | NUR ---
Continues on oxygen at 5 L/min via NC. Continues to get very short of breath with minimal activity. Uses bedpan. Continues on IV ABX per orders. Voices no questions, needs, or concerns at this time. In bed with call light within reach.
--- NOTE | 2021-04-08 06:15 | NUR ---
IV leaking to right forearm. Patient reports multiple IV sticks previosly. Bruising BUE. Requested PICC. Spoke with ANSLEY Kearns. Due to ABX, awaiting [facility] bed, ok to place PICC. Order placed.
[2021-04-08 06:18] LABS: HEMATOCRIT 42.2 % (37.0-47.0); HEMOGLOBIN 13.2 g/dl (12.5-16.0); MEAN CELL VOLUME 89 fl (80.0-100.0); MEAN CORPUSCULAR HEMOGLOBIN 28 pg (27-31); MEAN CORPUSCULAR HGB CONC 31 g/dl (33.0-37.0); MEAN PLATELET VOLUME 10.9 fl (7.4-10.4); PLATELET COUNT 206 K/mm3 (130-400); RED BLOOD COUNT 4.76 M/mm3 (4.10-5.30); REDCELL DISTRIBUTION WIDTH-CV 17.3 % (11.5-14.5)
[2021-04-08 06:45] LABS: ALBUMIN 3.2 gm/dL (3.4-4.8); CALCIUM 8.7 mg/dL (8.4-10.2); CREATININE, serum 1.32 mg/dL (0.57-1.11); MAGNESIUM 1.7 mg/dL (1.6-2.6); PHOSPHOROUS 3.4 mg/dL (2.3-4.7); POTASSIUM 3.6 mmol/L (3.5-4.5)
[2021-04-08 07:21] VITALS: BP 109/74; PULSE 79; TEMP 98
[2021-04-08 08:18] LABS: BAND 1 % (0-10); LYMPHOCYTE 17 % (20.0-51.0); NEUTROPHILS 75 % (42.0-75.2); NUCLEATED RED BLOOD CELL 1 (0-6); PLATELET ESTIMATE NORMAL (NORMAL)
--- NOTE | 2021-04-08 08:42 | NUR ---
RECHECKED SPO2 AT THIS TIME, 92% ON 5L OF O2.
--- NOTE | 2021-04-08 11:57 | NUR ---
PT ALERT AND ORIENTED. PT DYSPNEA AT REST WORSENED WITH COUGH. PT LUNGS DIMINISHED, CLEAR IN ALL LOBES. ACTIVE BOWEL SOUNDS, SOFT,NON-TENDER. PT HAS BRUSING ON ARMS BILATERALLY. PT IV INFILTRATED, LEAKING, NEED FOR PICC LINE OR CENTRAL LINE PLACEMENT. TO BE DONE BY SURGERY TODAY. PT HAS 2+ PULSES IN ALL EXTREMITIES, S1,S2 HEARD, CAP REFILL <3S. PT CALL LIGHT WITHIN REACH, STATES FEELING TIRED AND HAVING NOT MUCH REST LAST NIGHT.
[2021-04-08 13:02] VITALS: BP 124/73; PULSE 93; TEMP 97.7
--- NOTE | 2021-04-08 13:39 | NUR ---
PT USED BEDSIDE COMMODE, DESAURATION NOTED TO 75%. OXYGEN TITRATED TO 6L, PT TOOK APPROXIMATELY 5 MINUTES TO RETURN TO 92% AFTER LYING DOWN.
--- NOTE | 2021-04-08 14:43 | NUR ---
Estevan, at [facility], confirms that they do not have a bed today and that they would be looking at tentatively taking the patient this weekend. Most likely on Sunday. ARASH contacted and updated the patient's daughter, Kristy. She is in agreement to the plan. ARASH updated the patient and she is also in agreement to the plan. *Discharge plan: [facility]*
[2021-04-08 15:32] VITALS: BP 163/82; PULSE 88; TEMP 97.6
--- NOTE | 2021-04-08 18:05 | NUR ---
Pt continuing on plan of care. Pt continues on oxygen, desaturation noted with exertion. Pt had central line placement today, blood return noted. IV abx continue per orders. Pt call light within reach. Pt family visited this shift.
[2021-04-08 21:32] VITALS: BP 149/84; PULSE 94; TEMP 98.4
[2021-04-09 01:33] VITALS: BP 152/88; PULSE 83; TEMP 97.7
--- NOTE | 2021-04-09 02:16 | NUR ---
PT IS SITTING IN BED WITH NO COMPLAINTS. PT IS PLEASANT AND COOPERATIVE. PT TOOK ALL MEDICATIONS. THIS RN LOOKED AT HEPARIN SITE SHOT FROM THIS MORNING, RN AUDIE SAID SITE HAS BEEN OOZING ALL DAY. THIS RN CHANGED DRESSING, REPLACED WITH GAUZE AND TAPE. THIS RN THEN REPLACED AGAIN WITH MORE GAUZE AND TAPE TO HOLD MORE PRESSURE ON SITE. CALL LIGHT IN REACH. NO OTHER NEEDS AT THIS TIME.
[2021-04-09 04:45] VITALS: BP 177/87; PULSE 76; TEMP 97.9
--- NOTE | 2021-04-09 05:52 | NUR ---
THIS RN NOTIFIED INA LOPEZ OF PT HAS AN OOZING BLOOD SPOT FROM A HEPARIN SUBQ SHOT YESTERDAY MORNING. THIS RN HAS CHANGED GUAZE 2X OVERNIGHT. INA STATES THAT MOST LIKELY A BLOOD VESSEL GOT HIT AND HEPARANIZED. MONITOR FOR ANY HEMATOMAS AND CONTINUE GUAZE/TAPE TO CONTROL.
--- NOTE | 2021-04-09 06:19 | NUR ---
PT HAD RELATIVELY OK NIGHT. PT DID NOT SLEEP MUCH AT ALL THROUGHOUT NIGHT. PT HAD SOME HIGHER BP BEFORE USING THE RESTROOM. BUT AFTER USING BEDPAN AND RELAXING, PT BP RETURNED BELOW THRESHOLD. THIS RN DID NOT GIVE ANY APRESOLINE DUE TO NEW BP READING AFTER BEING ABLE TO VOID. PT HAS 1 SPOT ON ABDOMEN THAT HAS GAUZE AND TAPE OVER TO TRY TO MINIMIZE BLEEDING FROM HEPARIN SHOT THAT POSSIBLY HIT A BLOOD VESSEL. CONTINUE TO MONITOR. CALL LIGHT IN REACH. NO OTHER NEEDS.
[2021-04-09 06:31] LABS: HEMATOCRIT 38.6 % (37.0-47.0); HEMOGLOBIN 12.3 g/dl (12.5-16.0); MEAN CELL VOLUME 88 fl (80.0-100.0); MEAN CORPUSCULAR HEMOGLOBIN 28 pg (27-31); MEAN CORPUSCULAR HGB CONC 32 g/dl (33.0-37.0); MEAN PLATELET VOLUME 10.8 fl (7.4-10.4); PLATELET COUNT 192 K/mm3 (130-400); RED BLOOD COUNT 4.41 M/mm3 (4.10-5.30); REDCELL DISTRIBUTION WIDTH-CV 16.8 % (11.5-14.5)
[2021-04-09 06:42] LABS: CALCIUM 8.5 mg/dL (8.4-10.2); CREATININE, serum 1.11 mg/dL (0.57-1.11); POTASSIUM 3.9 mmol/L (3.5-4.5)
[2021-04-09 07:53] VITALS: BP 162/72; PULSE 70; TEMP 98.3
[2021-04-09 09:40] LABS: BAND 1 % (0-10); EOSINOPHIL 1 % (0-4); LYMPHOCYTE 18 % (20.0-51.0); NEUTROPHILS 69 % (42.0-75.2)
[2021-04-09 09:43] LABS: ANISOCYTOSIS 1+; HYPOCHROMIA 2+
[2021-04-09 09:44] LABS: PLATELET ESTIMATE NORMAL (NORMAL)
[2021-04-09] MEDS ORDERED: VIBRAMYCININJ IV (09:56)
[2021-04-09] MEDS ORDERED: MAXIPIME1 GM IV (09:56)
[2021-04-09] MEDS ORDERED: PREDNISONE20 MG PO (09:59)
--- NOTE | 2021-04-09 13:19 | NUR ---
Clinical updates and discharge orders faxed to Shaunna at [facility]. Shaunna reports that a 1700 admission time would work best for them. [facility] contacted who states that they have a transport going to [place] at this time but can make it here between [id number] for a transfer to [facility]. Esau Vilchis, RN,physician staff, Shaunna and the patient are all notified of the above transfer time and are in agreement of this patient being transfered to [facility].
[2021-04-09 13:35] VITALS: BP 119/84; PULSE 77; TEMP 97.7
--- NOTE | 2021-04-09 13:50 | NUR ---
REPORT CALLED TO NURSE AT [facility]. ALL QUESTIONS ANSWERED. IJ LEFT IN PLACE PER SELCTS REQUEST. PT DRESSED AND READY FOR TRANSPORT.
--- NOTE | 2021-04-09 14:00 | NUR ---
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 [facility] contacted who states they can make the transfer, but cannot have a unit here until 1700. Shaunna with [facility] contact who states a later admit is fine with them. [facility] contacted back saying that a 1700 transfer time is fine. Esau and patient's RN notifed of new time.
--- NOTE | 2021-04-09 15:28 | NUR ---
Report received from YANIQUE Darby. To take over cares for remainder of shift. Pt to discharge this shift.
[2021-04-09 16:49] VITALS: BP 128/78; PULSE 77; TEMP 97.4
--- NOTE | 2021-04-09 17:51 | NUR ---
PT ALERT AND ORIENTED. PT GETTING READY TO TRANSFER THIS SHIFT. PT REFUSING HEPARIN, PREVIOUS SITE BLEEDING. PRESSURE DRESSING APPLIED AND CHARGE NURSE NOTIFIED. PT LUNGS CLEAR, VERY PRONOUNCED SOA WITH EXERTION. PT BEING CHANGED FOR TRANSFER. PT HAS ECCYMOSIS ON ABDOMEN FROM PREVIOUS HEPARIN SITES. PT PULSES 2+ ALL EXTREMITIES, CAP REFILL <3S. PT ACTIVE BOWEL SOUNDS, TENDER TO TOUCH, SOFT. PT CALL LIGHT WITHIN REACH.
--- NOTE | 2021-04-09 18:43 | NUR ---
EMS ARRIVED TO TAKE PT TO TRANSFER FACILITY. PAPERWORK GIVEN, PT BELONGINGS IN BAGS WITH PT. PT TRANSFERRED WITH [facility].
== END 2021-04-09 18:44 | disposition short-term general hospital (02) | DRG 193 ==
LOC: COL.ER 13:32 → MEDICAL 16:47
PROVIDERS: Physician Assistant; Surgery; ADMIT Internal Medicine
PROC: 05HY33Z Insertion of Infusion Device into Upper Vein, Percutaneous Approach (ICD-10-PCS; principal; 2021-04-08 11:45)
DX: J18.9 Pneumonia, unspecified organism (principal); J96.21 Acute and chronic respiratory failure with hypoxia; N17.9 Acute kidney failure, unspecified; I27.20 Pulmonary hypertension, unspecified; Z86.73 Personal history of transient ischemic attack (TIA), and cerebral infarction without residual deficits; E78.5 Hyperlipidemia, unspecified; I48.91 Unspecified atrial fibrillation; Z79.82 Long term (current) use of aspirin; I25.10 Atherosclerotic heart disease of native coronary artery without angina pectoris; I12.9 Hypertensive chronic kidney disease with stage 1 through stage 4 chronic kidney disease, or unspecified chronic kidney disease; N18.9 Chronic kidney disease, unspecified; Z90.49 Acquired absence of other specified parts of digestive tract; Z87.891 Personal history of nicotine dependence; J43.9 Emphysema, unspecified; I71.9 Aortic aneurysm of unspecified site, without rupture
CPT/HCPCS: OP; 99232-AI; 99233-AI; C1751; G0378; J0360; J0692; J1644; J2920; J7030; J7512